=== PATIENT | male | born 1985 | race Caucasian/White ===

== ENCOUNTER 2021-02-21 22:29 | Inpatient (IN) ==
[2021-02-21] MEDS ORDERED: STAT IV Infusion **Titration per Protocol STA (22:49)
[2021-02-21] MEDS ORDERED: dilTIAZem HCl 5 MG/ML 5 ML VIAL IV STA (22:49)
[2021-02-21 23:00] LABS: Hematocrit (blood only) 45.6 % (42-52); Hemoglobin 16.5 g/dL (14.0-18.0); Mean Corpuscular Hemoglobin 30.9 pg (25-34); Mean Corpuscular Hgb Conc 36.2 g/dL (32-36); Mean Corpuscular Volume 85.4 fL (80-100); Mean Platelet Volume 10.8 fL (7.4-10.4); Platelet Count 311 K/uL (130-400); RDW Coefficient of Variation 12.8 % (11.5-14.5); RDW Standard Deviation 39.5 fL (36.4-46.3); Red Blood Count 5.34 M/uL (4.7-6.1); White Blood Count 15.97 K/uL (4.8-10.8)
[2021-02-21] MEDS: SODIUM CHLORIDE 0.9% 1000ML 1,000 ML IV SCH (23:02)
[2021-02-21] MEDS: dilTIAZem HCL 125 MG in DEXTROSE 5% 100 ML IV SCH (23:02)
[2021-02-21 23:23] LABS: Albumin Level 4.2 gm/dl (3.4-5.0); Calcium 8.9 mg/dl (8.5-10.1); Creatinine Clr Calc Pharmacy 101.8 ml/min; Magnesium 2.3 mg/dl (1.8-2.4); Potassium 2.9 mmol/L (3.5-5.1)
[2021-02-21] MEDS ORDERED: POTASSIUM CHLORIDE CRTAB 20 MEQ TABCR PO STA (23:26)
[2021-02-21 23:29] LABS: Basophils # (auto) 0.02 K/uL (0-0.2); Basophils % (auto) 0.1 %; Eosinophils % (auto) 2.5 %; Immature Granulocytes # (auto) 0.04 K/uL (0.00-0.02); Immature Granulocytes % (auto) 0.3 %; Lymphocytes # (auto) 3.27 K/uL (1.2-3.4); Lymphocytes % (auto) 20.5 %; Monocytes # (auto) 1.13 K/uL (0.11-0.59); Monocytes % (auto) 7.1 %; Neutrophils # (auto) 11.11 K/uL (1.4-6.5); Neutrophils % (auto) 69.5 %
--- NOTE | 2021-02-21 23:38 | Emergency Department Note ---
History of Present Illness General Chief complaint: Tachycardia Stated complaint: CHEST TIGHTNESS, TACHYCARDIA, FLUID IN LUNGS Source: patient Mode of arrival: ambulatory Limitations: no limitations History of Present Illness Provider complaint: Racing heart, shortness of breath Onset (ago): hour(s) Location: chest Severity: moderate Current Pain Intensity: 0 Exacerbated By: + movement Associated symptoms: + shortness of breath; no nausea/vomiting Treatments prior to arrival: none This is a 35-year-old male who presents the emergency department with complaints of racing heart and trouble breathing. Patient denies any prior heart history. A nurse brought me an EKG showing a rapid heart rate at 149 and asked me to come immediately to the room. Patient denies any prior history of palpitations or abnormal heart rhythms. Patient states he noted earlier today that he was more winded than usual walking up a hill in his yard. He states this evening he began to feel as though his heart was racing and it was difficult to breathe. Patient denies fevers or chills or recent illness. States only recent medication change was that he started taking an [id number] stomach medication as he thought he had increased acid irritation. Patient states a week ago he stopped drinking coffee as he felt this was contributing to his reflux type symptoms. Patient denies any significant cardiac history in the family. He admits to occasional alcohol use, no recent significant intoxication. Denies any substance abuse. Patient denies any accompanying pain. No recent leg swelling or calf tenderness. No recent travel. Pt seen during a time of high acuity and national emergency pandemic while wearing PPE. Home Medications Medication Instructions Recorded Confirmed Type aspirin [Aspir-Low] 324 mg PO DAILY PRN 02/21/21 02/21/21 History fluticasone propionate [Flonase 1 spray INTRANASAL DAILY PRN 02/21/21 02/21/21 History Allergy Relief] Allergies Allergy/AdvReac Type Severity Reaction Status Date / Time No Known Allergies Allergy Unverified 02/21/21 23:46 Past Med/Surg History Medical History TANYA on CPAP Surgical History H/O mastectomy elective Family History Mother Hypertension Kidney malignancy Father Hypertension Social History Smoking Status: Never smoker Hx Alcohol Use: Yes Hx Substance Use: No Preferred Language: Mozambican Communication Ability: Effective Climbing Guide Required: No Beliefs That Will Affect Care: None Current Living Situation: Significant Other Feels Safe at Home: Yes Safety Concerns: Feels Safe At This Time Assistive Devices: None Review of Systems See HPI for pertinent positives & negatives. and A total of 10 systems reviewed and were otherwise negative Physical Exam Vital Signs Vital Signs - 24 hr 02/21/21 22:32 02/21/21 22:38 02/21/21 22:41 Temperature 36.7 C Temperature Source Oral Pulse Rate 147 H 147 H 147 H Pulse Rate from SpO2 Sensor 148 H 147 H Respiratory Rate 22 23 31 H Respiratory Effort / Characteristics Non-Labored Spontaneous Respiratory Depth Blood Pressure 214/134 H 223/140 H Blood Pressure Mean 160 167 Blood Pressure Position Sitting Pulse Oximetry 97 99 100 Oxygen Delivery Method Room Air Sepsis Recent Fever Within 48 Hours No Sepsis New/Unexplained Change in Mental Status No Sepsis Action Taken by Nursing No Action Required 02/21/21 22:42 02/21/21 23:00 02/21/21 23:30 Temperature 36.5 C Temperature Source Oral Pulse Rate 142 H 135 H Pulse Rate from SpO2 Sensor 142 H 136 H Respiratory Rate 22 25 H 26 H Respiratory Effort / Characteristics Respiratory Depth Normal Blood Pressure 211/135 H 198/126 H Blood Pressure Mean 160 150 Blood Pressure Position Pulse Oximetry 95 98 97 Oxygen Delivery Method Room Air Sepsis Recent Fever Within 48 Hours Sepsis New/Unexplained Change in Mental Status Sepsis Action Taken by Nursing 02/22/21 00:00 02/22/21 00:30 02/22/21 01:00 Temperature Temperature Source Pulse Rate 135 H 135 H 136 H Pulse Rate from SpO2 Sensor 134 H 136 H Respiratory Rate 19 21 18 Respiratory Effort / Characteristics Respiratory Depth Blood Pressure 188/128 H Blood Pressure Mean 148 Blood Pressure Position Pulse Oximetry 97 96 Oxygen Delivery Method Sepsis Recent Fever Within 48 Hours Sepsis New/Unexplained Change in Mental Status Sepsis Action Taken by Nursing 02/22/21 01:02 02/22/21 01:30 02/22/21 01:31 Temperature Temperature Source Pulse Rate 134 H 134 H 132 H Pulse Rate from SpO2 Sensor 135 H 134 H 132 H Respiratory Rate 14 23 26 H Respiratory Effort / Characteristics Respiratory Depth Blood Pressure 169/115 H 174/117 H Blood Pressure Mean 133 136 Blood Pressure Position Pulse Oximetry 97 95 96 Oxygen Delivery Method Sepsis Recent Fever Within 48 Hours Sepsis New/Unexplained Change in Mental Status Sepsis Action Taken by Nursing 02/22/21 01:32 Temperature Temperature Source Pulse Rate 127 H Pulse Rate from SpO2 Sensor 127 H Respiratory Rate 35 H Respiratory Effort / Characteristics Respiratory Depth Blood Pressure Blood Pressure Mean Blood Pressure Position Pulse Oximetry 96 Oxygen Delivery Method Sepsis Recent Fever Within 48 Hours Sepsis New/Unexplained Change in Mental Status Sepsis Action Taken by Nursing GENERAL: alert, uncomfortable appearing, well nourished, no distress, non-toxic, BMI>40 EYE EXAM: normal conjunctiva, PERRL and EOM's grossly intact OROPHARYNX: no exudate, no erythema, lips, buccal mucosa, and tongue normal and mucous membranes are moist NECK: supple, no nuchal rigidity, no adenopathy, non-tender LUNGS: Clear to auscultation. Normal chest wall mechanics, no w/r/r HEART: no murmurs, S1 normal and S2 normal, tachycardic on telemetry around 150 ABDOMEN: abdomen soft, non-tender, normo-active bowel sounds, no masses, no rebound or guarding. BACK: Back is symmetrical on inspection and there is no deformity, no midline tenderness, no CVA tenderness. SKIN: no rashes and no bruising UPPER EXTREMITIES: upper extremities are grossly normal. FROM, nml pulses b/l. LOWER EXTREMITIES: No pitting edema. FROM, nml pulses b/l. NEURO EXAM: Normal sensorium, cranial nerves II-XII grossly intact, normal speech, no gross weakness of arms, no gross weakness of legs. Gross sensation intact. Course Course 0003: HR 138, pt states feeling improved. Denies any recent tick/bug bites. 0015: Discussed with Dr. Lr. 0038: Discussed with Dr. Lr. 0130: Discussed with Dr. Bunch. 0133: HR 128. He denies any current chest discomfort of any kind, or sob. 0135: Discussed with Dr. Kelly. Administered Medications Heparin Sodium/Dextrose (Heparin Sodium/Dextrose) 25,000 units in 500 mls @ 32 mls/hr IV .[id number] [facility]; Protocol Stop: 03/24/21 01:44 Last Titration: 02/22/21 17:40 Dose: 1,600 units/hr, 32 mls/hr Documented by: [id number] Cosigned by: [id number] Titration: 02/22/21 10:08 Dose: 1,300 units/hr, 26 mls/hr Documented by: [id number] Cosigned by: [id number] Admin: 02/22/21 02:14 Dose: 1,000 units/hr, 20 mls/hr Documented by: [id number] Cosigned by: [id number] Famotidine 20 mg/ Syringe 5 mls @ 2.5 mls/min IV BID ROLAND Stop: 03/24/21 08:59 Last Admin: 02/22/21 08:02 Dose: 2.5 mls/min Documented by: [id number] Ceftriaxone Sodium 2,000 mg/ (Dextrose) 70 mls @ 100 mls/hr IV Q24H [facility]; Protocol Stop: 03/04/21 03:59 Last Infusion: 02/22/21 05:36 Dose: 0 mls/hr Documented by: [id number] Admin: 02/22/21 04:21 Dose: 100 mls/hr Documented by: [id number] Doxycycline Hyclate 100 mg/ (Dextrose) 110 mls @ 50 mls/hr IV Q12H [facility] Stop: 03/04/21 05:59 Last Admin: 02/22/21 17:22 Dose: 50 mls/hr Documented by: [id number] Infusion: 02/22/21 07:15 Dose: 0 mls/hr Documented by: [id number] Admin: 02/22/21 05:00 Dose: 50 mls/hr Documented by: [id number] Metoprolol Tartrate (Metoprolol Tartrate 25 Mg Tab) 25 mg PO Q6 R[facility] Stop: 03/24/21 12:59 Last Admin: 02/22/21 17:22 Dose: 25 mg Documented by: [id number] Admin: 02/22/21 13:03 Dose: 25 mg Documented by: [id number] Discontinued Medications Diltiazem HCl (Diltiazem Hcl 5 Mg/Ml 5 Ml Vial) 20 mg IV NOW STA Stop: 02/21/21 22:50 Last Admin: 02/21/21 23:02 Dose: 20 mg Documented by: [id number] Cosigned by: [id number] Heparin Sodium (Porcine) (Heparin Sod (Porcine) 1000 Unit/Ml) 4,500 units IV NOW ONE Stop: 02/22/21 18:01 Last Admin: 02/22/21 18:06 Dose: 4,500 units Documented by: [id number] Cosigned by: [id number] Heparin Sodium/Dextrose (Heparin Iv Adult Wt-Based Low-Dose *No* Bolus Protocol) 1 ea N/A ONE ONE; Protocol Stop: 02/22/21 01:32 Last Admin: 02/22/21 02:27 Dose: Not Given Documented by: [id number] Sodium Chloride (Nss 1000ml) 1,000 mls @ 125 mls/hr IV .Q8H ROLAND Stop: 03/23/21 22:59 Last Infusion: 02/22/21 13:10 Dose: 0 mls/hr Documented by: [id number] Admin: 02/22/21 06:49 Dose: 125 mls/hr Documented by: [id number] Infusion: 02/22/21 06:49 Dose: 125 mls/hr Documented by: [id number] Admin: 02/21/21 23:02 Dose: 125 mls/hr Documented by: [id number] Diltiazem HCl 125 mg/ Dextrose 125 mls @ 15 mls/hr IV .Q8H20M [facility]; Protocol Stop: 03/23/21 22:59 Last Titration: 02/22/21 13:10 Dose: 0 mg/hr, 0 mls/hr Documented by: [id number] Cosigned by: [id number] Admin: 02/22/21 08:02 Dose: 15 mg/hr, 15 mls/hr Documented by: [id number] Cosigned by: [id number] Titration: 02/22/21 08:02 Dose: 0 mg/hr, 0 mls/hr Documented by: [id number] Cosigned by: [id number] Titration: 02/21/21 23:51 Dose: 15 mg/hr, 15 mls/hr Documented by: [id number] Cosigned by: [id number] Titration: 02/21/21 23:25 Dose: 10 mg/hr, 10 mls/hr Documented by: [id number] Cosigned by: [id number] Admin: 02/21/21 23:02 Dose: 5 mg/hr, 5 mls/hr Documented by: [id number] Cosigned by: [id number] Potassium Chloride (K Garrett / Wtr) 10 meq in 100 mls @ 100 mls/hr IV ONE ONE Stop: 02/22/21 02:45 Last Infusion: 02/22/21 03:49 Dose: 0 mls/hr Documented by: [id number] Admin: 02/22/21 02:44 Dose: 100 mls/hr Documented by: [id number] Potassium Chloride (K Garrett / Wtr) 10 meq in 100 mls @ 100 mls/hr IV Q1H [facility]OL[facility] Stop: 02/22/21 05:59 Last Infusion: 02/22/21 06:50 Dose: 0 mls/hr Documented by: [id number] Admin: 02/22/21 05:30 Dose: 100 mls/hr Documented by: [id number] Infusion: 02/22/21 05:21 Dose: 100 mls/hr Documented by: [id number] Admin: 02/22/21 04:21 Dose: 100 mls/hr Documented by: [id number] Potassium Chloride (K Garrett / Wtr) 10 meq in 100 mls @ 100 mls/hr IV Q1H ROL[facility] Stop: 02/22/21 08:29 Last Infusion: 02/22/21 08:56 Dose: 0 mls/hr Documented by: [id number] Admin: 02/22/21 07:43 Dose: 100 mls/hr Documented by: [id number] Infusion: 02/22/21 07:42 Dose: 0 mls/hr Documented by: [id number] Admin: 02/22/21 06:40 Dose: 100 mls/hr Documented by: [id number] Furosemide 20 mg/ Syringe 2 mls @ 4 mls/min IV ONE ONE Stop: 02/22/21 13:01 Last Admin: 02/22/21 13:04 Dose: 4 mls/min Documented by: [id number] Ioversol (Optiray 350 500ml) 106 ml IV ONCE ONE Stop: 02/22/21 00:40 Last Admin: 02/22/21 00:41 Dose: 106 ml Documented by: [id number] Metoprolol Succinate (Metoprolol Succ 25mg Ext Rel Tab) 25 mg PO QAM ROLAND Stop: 03/24/21 08:59 Last Admin: 02/22/21 08:01 Dose: 25 mg Documented by: [id number] Metoprolol Tartrate (Metoprolol Tartrate 1 Mg/Ml Vial) 5 mg IV NOW [facility] Stop: 02/22/21 01:44 Last Admin: 02/22/21 02:17 Dose: 5 mg Documented by: [id number] Metoprolol Tartrate (Metoprolol Tartrate 1 Mg/Ml Vial) 2.5 mg IV NOW STA Stop: 02/22/21 03:13 Last Admin: 02/22/21 04:20 Dose: 2.5 mg Documented by: [id number] Miscellaneous (Stat Iv Infusion Titration Per Protocol) 1 ea N/A NOW STA Stop: 02/21/21 22:50 Last Admin: 02/21/21 23:02 Dose: 1 ea Documented by: [id number] Nitroglycerin (Nitroglycerin 2% Ointment 30gm Tube) 1 inch EXT NOW STA Stop: 02/22/21 00:20 Last Admin: 02/22/21 00:27 Dose: 1 inch Documented by: [id number] Potassium Chloride (Potassium Chloride Crtab 20 Meq Tabcr) 40 meq PO NOW STA Stop: 02/21/21 23:27 Last Admin: 02/21/21 23:33 Dose: 40 meq Documented by: [id number] Potassium Chloride (Potassium Chloride Crtab 20 Meq Tabcr) 20 meq PO NOW STA Stop: 02/22/21 06:15 Last Admin: 02/22/21 07:16 Dose: 20 meq Documented by: [id number] Potassium Chloride (Potassium Chloride Crtab 20 Meq Tabcr) 20 meq PO NOW ONE Stop: 02/22/21 13:01 Last Admin: 02/22/21 13:03 Dose: 20 meq Documented by: [id number] Critical Care Time Critical Care Time: Yes Total Critical Care Time: 57 Critical care of 57 min performed to assess and manage high likelihood of life- threatening dysrhythmia and elevated troponin, involving labs and imaging performed with assessment to evaluate dysrhythmia and elevated troponin diagnosis with frequent reassessment. This time includes bedside time, treatment discussions with patient/family/consultants, documentation time and excludes procedure time. Medical Decision Making Differential Diagnosis Differential diagnosis includes etiologies such as premature contractions, electrolyte abnormality, cardiac dysrhythmia, thyroid dysfunction, pulmonary embolism, infection, gastrointestinal, as well as others were entertained. Medical Records Attestation: I reviewed the patient's medical records. Home Medications Current Medication List: was personally reviewed by me Laboratory Data Attestation: I reviewed the patient's lab results. Result diagrams: 02/22/21 04:13 02/22/21 14:08 Lab Results 02/21/21 02/21/21 02/21/21 Range/Units 22:45 22:45 22:45 WBC 15.97 H (4.8-10.8) K/uL RBC 5.34 (4.7-6.1) M/uL Hgb 16.5 (14.0-18.0) g/dL Hct 45.6 (42-52) % MCV 85.4 (80-100) fL MCH 30.9 (25-34) pg MCHC 36.2 H (32-36) g/dL RDW Std Deviation 39.5 (36.4-46.3) fL RDW Coeff of Kalina 12.8 (11.5-14.5) % Plt Count 311 (130-400) K/uL MPV 10.8 H (7.4-10.4) fL Immature Gran % (Auto) 0.3 % Neut % (Auto) 69.5 % Lymph % (Auto) 20.5 % [place] % (Auto) 7.1 % Eos % (Auto) 2.5 % Baso % (Auto) 0.1 % Neut # (Auto) 11.11 H (1.4-6.5) K/uL Lymph # (Auto) 3.27 (1.2-3.4) K/uL [place] # (Auto) 1.13 H (0.11-0.59) K/uL Eos # (Auto) 0.40 (0-0.5) K/uL Baso # (Auto) 0.02 (0-0.2) K/uL Immature Gran # (Auto) 0.04 H (0.00-0.02) K/uL ESR 26 H (0-15) mm/hr PT INR Sodium 140 (136-145) mmol/L Potassium 2.9 L (3.5-5.1) mmol/L Chloride 105 (98-107) mmol/L Carbon Dioxide 28 (21-32) mmol/L Anion Gap 7.0 (3-11) BUN 13 (7-18) mg/dl Creatinine 1.43 H (0.6-1.4) mg/dl Est Cr Clr Drug Dosing 101.8 ml/min Est GFR ( Amer) 73.0 ml/min Est GFR (Non-Af Amer) 63.0 ml/min BUN/Creatinine Ratio 9.0 L (10-20) Glucose 192 H (70-99) mg/dl Osmolality (280-300) mOsm/kg Calcium 8.9 (8.5-10.1) mg/dl Magnesium 2.3 (1.8-2.4) mg/dl Total Bilirubin 0.6 (0.2-1) mg/dl AST 72 H (15-37) U/L ALT 67 (12-78) U/L Alkaline Phosphatase 104 (45-117) U/L Troponin I 13.300 H* (0-0.045) ng/ml C-Reactive Protein 2.87 H (0-0.29) mg/dl NT-Pro-B Natriuret Pep 5580 H (0-450) pg/ml Total Protein 8.0 (6.4-8.2) gm/dl Albumin 4.2 (3.4-5.0) gm/dl Globulin 3.8 (2.5-4.0) gm/dl Albumin/Globulin Ratio 1.1 (0.9-2) TSH 6.080 H (0.300-4.500) uIu/ml Free T4 1.08 (0.8-1.6) ng/dl Anaplasma Smear See Comment Lyme Disease IgG Ab Lyme Disease IgM Ab COVID-19 Eval Order SARS-CoV-2 (PCR) (Negative) Monoscreen (Negative) 02/21/21 02/21/21 02/21/21 Range/Units 23:04 23:04 23:52 WBC (4.8-10.8) K/uL RBC (4.7-6.1) M/uL Hgb (14.0-18.0) g/dL Hct (42-52) % MCV (80-100) fL MCH (25-34) pg MCHC (32-36) g/dL RDW Std Deviation (36.4-46.3) fL RDW Coeff of Kalina (11.5-14.5) % Plt Count (130-400) K/uL MPV (7.4-10.4) fL Immature Gran % (Auto) % Neut % (Auto) % Lymph % (Auto) % [place] % (Auto) % Eos % (Auto) % Baso % (Auto) % Neut # (Auto) (1.4-6.5) K/uL Lymph # (Auto) (1.2-3.4) K/uL [place] # (Auto) (0.11-0.59) K/uL Eos # (Auto) (0-0.5) K/uL Baso # (Auto) (0-0.2) K/uL Immature Gran # (Auto) (0.00-0.02) K/uL ESR (0-15) mm/hr PT Cancelled 10.1 INR Cancelled 1.0 Sodium (136-145) mmol/L Potassium (3.5-5.1) mmol/L Chloride (98-107) mmol/L Carbon Dioxide (21-32) mmol/L Anion Gap (3-11) BUN (7-18) mg/dl Creatinine (0.6-1.4) mg/dl Est Cr Clr Drug Dosing ml/min Est GFR ( Amer) ml/min Est GFR (Non-Af Amer) ml/min BUN/Creatinine Ratio (10-20) Glucose (70-99) mg/dl Osmolality (280-300) mOsm/kg Calcium (8.5-10.1) mg/dl Magnesium (1.8-2.4) mg/dl Total Bilirubin (0.2-1) mg/dl AST (15-37) U/L ALT (12-78) U/L Alkaline Phosphatase (45-117) U/L Troponin I (0-0.045) ng/ml C-Reactive Protein (0-0.29) mg/dl NT-Pro-B Natriuret Pep (0-450) pg/ml Total Protein (6.4-8.2) gm/dl Albumin (3.4-5.0) gm/dl Globulin (2.5-4.0) gm/dl Albumin/Globulin Ratio (0.9-2) TSH (0.300-4.500) uIu/ml Free T4 (0.8-1.6) ng/dl Anaplasma Smear Lyme Disease IgG Ab Cancelled Lyme Disease IgM Ab Cancelled COVID-19 Eval Order SARS-CoV-2 (PCR) (Negative) Monoscreen (Negative) 02/21/21 02/21/21 02/21/21 Range/Units 23:52 23:52 23:52 WBC (4.8-10.8) K/uL RBC (4.7-6.1) M/uL Hgb (14.0-18.0) g/dL Hct (42-52) % MCV (80-100) fL MCH (25-34) pg MCHC (32-36) g/dL RDW Std Deviation (36.4-46.3) fL RDW Coeff of Kalina (11.5-14.5) % Plt Count (130-400) K/uL MPV (7.4-10.4) fL Immature Gran % (Auto) % Neut % (Auto) % Lymph % (Auto) % [place] % (Auto) % Eos % (Auto) % Baso % (Auto) % Neut # (Auto) (1.4-6.5) K/uL Lymph # (Auto) (1.2-3.4) K/uL [place] # (Auto) (0.11-0.59) K/uL Eos # (Auto) (0-0.5) K/uL Baso # (Auto) (0-0.2) K/uL Immature Gran # (Auto) (0.00-0.02) K/uL ESR (0-15) mm/hr PT INR Sodium (136-145) mmol/L Potassium (3.5-5.1) mmol/L Chloride (98-107) mmol/L Carbon Dioxide (21-32) mmol/L Anion Gap (3-11) BUN (7-18) mg/dl Creatinine (0.6-1.4) mg/dl Est Cr Clr Drug Dosing ml/min Est GFR ( Amer) ml/min Est GFR (Non-Af Amer) ml/min BUN/Creatinine Ratio (10-20) Glucose (70-99) mg/dl Osmolality 290 (280-300) mOsm/kg Calcium (8.5-10.1) mg/dl Magnesium (1.8-2.4) mg/dl Total Bilirubin (0.2-1) mg/dl AST (15-37) U/L ALT (12-78) U/L Alkaline Phosphatase (45-117) U/L Troponin I (0-0.045) ng/ml C-Reactive Protein (0-0.29) mg/dl NT-Pro-B Natriuret Pep (0-450) pg/ml Total Protein (6.4-8.2) gm/dl Albumin (3.4-5.0) gm/dl Globulin (2.5-4.0) gm/dl Albumin/Globulin Ratio (0.9-2) TSH (0.300-4.500) uIu/ml Free T4 (0.8-1.6) ng/dl Anaplasma Smear Lyme Disease IgG Ab Negative Lyme Disease IgM Ab Equivocal A COVID-19 Eval Order SARS-CoV-2 (PCR) (Negative) Monoscreen Negative (Negative) 02/22/21 02/22/21 Range/Units 01:05 01:05 WBC (4.8-10.8) K/uL RBC (4.7-6.1) M/uL Hgb (14.0-18.0) g/dL Hct (42-52) % MCV (80-100) fL MCH (25-34) pg MCHC (32-36) g/dL RDW Std Deviation (36.4-46.3) fL RDW Coeff of Kalina (11.5-14.5) % Plt Count (130-400) K/uL MPV (7.4-10.4) fL Immature Gran % (Auto) % Neut % (Auto) % Lymph % (Auto) % [place] % (Auto) % Eos % (Auto) % Baso % (Auto) % Neut # (Auto) (1.4-6.5) K/uL Lymph # (Auto) (1.2-3.4) K/uL [place] # (Auto) (0.11-0.59) K/uL Eos # (Auto) (0-0.5) K/uL Baso # (Auto) (0-0.2) K/uL Immature Gran # (Auto) (0.00-0.02) K/uL ESR (0-15) mm/hr PT INR Sodium (136-145) mmol/L Potassium (3.5-5.1) mmol/L Chloride (98-107) mmol/L Carbon Dioxide (21-32) mmol/L Anion Gap (3-11) BUN (7-18) mg/dl Creatinine (0.6-1.4) mg/dl Est Cr Clr Drug Dosing ml/min Est GFR ( Amer) ml/min Est GFR (Non-Af Amer) ml/min BUN/Creatinine Ratio (10-20) Glucose (70-99) mg/dl Osmolality (280-300) mOsm/kg Calcium (8.5-10.1) mg/dl Magnesium (1.8-2.4) mg/dl Total Bilirubin (0.2-1) mg/dl AST (15-37) U/L ALT (12-78) U/L Alkaline Phosphatase (45-117) U/L Troponin I (0-0.045) ng/ml C-Reactive Protein (0-0.29) mg/dl NT-Pro-B Natriuret Pep (0-450) pg/ml Total Protein (6.4-8.2) gm/dl Albumin (3.4-5.0) gm/dl Globulin (2.5-4.0) gm/dl Albumin/Globulin Ratio (0.9-2) TSH (0.300-4.500) uIu/ml Free T4 (0.8-1.6) ng/dl Anaplasma Smear Lyme Disease IgG Ab Lyme Disease IgM Ab COVID-19 Eval Order Covid19 at [facility] SARS-CoV-2 (PCR) NEGATIVE (Negative) Monoscreen (Negative) Imaging Data My Impression: X-ray: I interpreted the following studies. Chest: A single view study of the chest was reviewed and was negative for cardiomegaly, focal infiltrate, effusion, pulmonary edema, or wide mediastinum. Radiologist's Impression: Chest X-Ray 02/21/21 22:49 XR chest 1V portable CLINICAL HISTORY: Shortness of breath COMPARISON STUDY: No previous studies for comparison. FINDINGS: The cardiac and mediastinal contours are normal. There is no evidence of focal pulmonary consolidation. There is no evidence of failure. No pleural effusions are visualized.[ IMPRESSION: No active disease in the chest. ACT 112: Negative or not required by law. Electronically signed by: Blaze Jefferson M.D. 02/22/2021 7:48 AM Chest CTA 02/22/21 00:16 CT ANGIOGRAM OF THE CHEST CLINICAL HISTORY: Shortness of breath. Possible acute pulmonary embolism COMPARISON STUDY: 02/21/2021 TECHNIQUE: Following the IV administration of 106 mL of Optiray, CT angiogram of the thorax was performed from the thoracic inlet to the lung bases utilizing the pulmonary embolus protocol. Images are reviewed in the axial, sagittal, and coronal planes. IV contrast was administered without complication. MIP imaging was performed. A dose lowering technique was utilized adhering to the principles of ALARA. CT DOSE: 1001.13 mGy.cm FINDINGS: There is hepatic steatosis. There is a mildly enlarged right paratracheal lymph node. This however demonstrates a normal fatty hilum and is likely reactive. The ascending thoracic aorta measures 36 mm in diameter. There is a small pericardial effusion. There were no pulmonary artery filling defects to indicate acute pulmonary embolism. No pleural effusions are visualized. There is mild interlobular of the septal edema. There is no focal pulmonary consolidation to indicate a pneumonia IMPRESSION: 1. No evidence of acute pulmonary embolism. 2. No evidence of focal pulmonary consolidation 3. Interlobular pulmonary septal edema 4. Small pericardial effusion 5. Hepatic steatosis ACT 112: Negative or not required by law. Electronically signed by: Blaze Jefferson M.D. 02/22/2021 7:41 AM CTA chest: No acute pulmonary embolus. Small pericardial effusion. Mild interstitial edema in the lung bases. Marked hepatic steatosis. Radiologist: Samuel Perez MD ECG Data Attestation: I personally reviewed and interpreted this ECG as follows: Indication: + palpitations and + tachycardia Rate (beats per minute): 149 Rhythm: + atrial flutter ECG Intervals/blocks: + Normal QRS and + Normal QT ECG [place]: + Normal ECG ST segments: + Nonspecific ST abnormalities (1, aVL, 2, 3, aVF) Comparison ECG Date: no prior available Additional Comments: Second EKG at 2357 shows a rate of 138, normal QRS and normal QTC, normal axis, low rate is still fast this time it appears more consistent with a sinus tachycardia, some nonspecific ST/T wave changes are noted in 1, aVL, lead III, and aVF Blood Pressure Blood Pressure Findings: Elevated blood pressure Blood Pressure Disposition: further management by hospitalist TEDDY Le This is a 35-year-old male presents emergency department due to concern for palpitations/pounding sensation in his chest as well as increased dyspnea with exertion all of which are new. Patient states he noticed symptoms today. Patient markedly tachycardic on initial presentation and was holding heart rate at 150, which raised my suspicion for new onset atrial flutter with 2:1 conduction. Patient started on Cardizem bolus and drip. Drip gradually incre ased and patient with improvement in blood pressure and slower improvement in heart rate into the 130s. Repeat EKG then appeared more consistent with a possible underlying sinus tachycardia. Other than obesity patient with no risk factors for ACS, no significant family history of cardiac problems. Patient stated he was feeling improved as the heart rate improved. Given mixed picture and concern, I discussed the case with cardiology. While discussing the case, patient's troponin resulted at 13 which seemed much higher than expected given abrupt onset of symptoms today per his report. Cardiology was able to review EKGs and did call back and we discussed further management and treatment. CT angiography of the patient's chest had already been ordered and was pending as I had higher concern for possible PE as the underlying explanation of his symptoms and presentation. CT read by overnight radiologist as negative. After this case discussed with on-call interventional cardiology as a precaution given significantly elevated troponin. He was able to review EKGs also. I reevaluated the patient and he said symptoms had since improved no sense of chest tightness or pressure, heart rate down in the 120s and blood pressure markedly improved also. He felt patient did not need emergent cardiac catheterization at this time. Case discussed with hospitalist for additional evaluation and management. During this interval I had previously ordered a Lyme test, the IgG was negative however IgM was equivocal. This was discussed with hospitalist also in the added additional tests including anaplasmosis. After discussion with cardiology I had started a heparin drip in addition. Patient kept up-to-date on results and plan. Was feeling improved while in the emergency room however still tachycardic and hypertensive. I did discuss possible concern for evolving congestive heart failure given obvious stress on the heart, hypertensive emergency, I do not suspect primary ACS or other vascular etiology. An order was placed for continuous cardiac monitoring. The monitor shows a rate of _139_ with _sinus tachycardia rhythm. Impression & Plan Dysrhythmia, Palpitations, Tachycardia, Elevated troponin, Hypokalemia, BANEGAS (dyspnea on exertion), Hypertension Discharge Plan Visit Data Chief Complaint: Tachycardia Stated Complaint: CHEST TIGHTNESS, TACHYCARDIA, FLUID IN LUNGS ED Provider: Ana Simmons Discharge Problem: Dysrhythmia, Palpitations, Tachycardia, Elevated troponin, Hypokalemia, BANEGAS (dyspnea on exertion), Hypertension Patient Disposition: Admitted As Inpatient Discharge Instructions Interventions: ED Discharge Assessment Last Done: 02/22/21 03:15 Discharge Problem: Dysrhythmia Qualifiers: Arrhythmia type: unspecified cardiac arrhythmia Qualified Code(s): I49.9 - Cardiac arrhythmia, unspecified Hypertension Qualifiers: Hypertension type: unspecified Qualified Code(s): I10 - Essential (primary) hypertension
[2021-02-21 23:41] LABS: Albumin Globulin Ratio 1.1 (0.9-2); Bilirubin,Total 0.6 mg/dl (0.2-1); Globulin 3.8 gm/dl (2.5-4.0); Thyroid Stimulating Hormone 6.08 uIu/ml (0.300-4.500); Troponin I 13.3 ng/ml (0-0.045)
[2021-02-21 23:55] LABS: T4 Free Thyroxine 1.08 ng/dl (0.8-1.6)
[2021-02-22] MEDS ORDERED: NITROGLYCERIN 2% OINTMENT 30GM TUBE EXT STA (00:19)
[2021-02-22 00:23] LABS: Prothrombin Time 10.1 Seconds (9.0-12.0)
[2021-02-22] MEDS ORDERED: OPTIRAY 350 500ml IV ONE (00:39)
[2021-02-22 01:08] LABS: Lyme Ab IgG w/WB Rflx Negative (Negative)
[2021-02-22 01:10] LABS: Lyme Ab IgM w/WB Rflx Equivocal (Negative)
[2021-02-22] MEDS ORDERED: Heparin IV Adult Wt-Based Low-Dose *NO* Bolus Protocol ONE (01:31)
--- NOTE | 2021-02-22 01:39 | History & Physical Report ---
Date of Service February 22, 2021 Assessment & Plan (1) Tachycardia: 35 yo M with hx TANYA on CPAP admitted from ER for new and persistent tachycardia, elevated troponin, concern for myocarditis/pericarditis. 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 - patient denies any recollection of rashes/tick bites but was recently mowing lawn a few days ago and lives in [place] (endemic tick region) - TTE in AM - trop elevated to 13 initially, trending - EKG showing aflutter as above - spirochete workup: anaplasmosis, ehrlichia pending - inflammatory panel elevated as above, RF pending - viral workup: monospot pending - WBC elevated with left shift & elevated monocytes TANYA - hx of, uses CPAP nightly at home - cont nightly CPAP - likely has an element of pulm htn/diastolic disease given elevated diastolic BP, TTE for evaluation as above Hypokalemia - repleted 40 mg PO, 10 mg IV - 30 mg IV on the floor - repeat BMP 4 am - goal K >4, Mag >2 Elevated Troponin - discussion with Dr. Bunch in ER -- less likely CAD, no indication for urgent catheterization given resolution of chest tightness/pain - trend troponins - heparin drip wo bolus Elevated BSG - A1c and lipid panel ordered in AM for cardiac risk stratification DVT ppx: on heparin drip FEN/Gi: heart healthy diet Code Status: Full Code Dispo: PCU (2) BANEGAS (dyspnea on exertion): (3) Hypokalemia: (4) Elevated troponin: (5) TANYA on CPAP: History of Present Illness 35-year-old male with past medical history of TANYA on CPAP presenting to the emergency department for acute onset palpitations, chest tightness, dyspnea on exertion. He states that 2 days ago he was mowing his lawn and felt more tired than usual afterwards but otherwise felt well. He states that today he was walking up a hill in his backyard and could feel his heart racing faster and harder than it normally does. He also stated that he was more easily fatigued while going up this he will. His heart rate and symptoms subsided within a few minutes after stopping however later the same day he noticed his heart going faster and generally feeling unwell. He stated that he initially attributed this to his recent cessation of coffee and associated mild reflux symptoms. He eventually decided that he needed to be evaluated in the emergency department. Since being treated with Cardizem and having his heart rate lowered he says that the chest tightness that was there prior no longer is present. He continues to deny any chest tightness, pressure, pain, radiation. He does attest to feeling palpitations however much improved from before. He states that he has been told he had "borderline" high blood pressure before but was never prescribed medication for it. He states that he does not have a strong family history of heart attack, stroke, coronary artery disease. His parents both had hypertension but otherwise he is not aware of any cardiac disease or diabetes in his family. He takes Flonase as needed for nasal congestion and occasionally will take an aspirin if he has a headache. He does not otherwise take any medications or supplements. Primary Care Provider: NO PCP Allergies Allergy/AdvReac Type Severity Reaction Status Date / Time No Known Allergies Allergy Unverified 02/21/21 23:46 Home Medications Medication Instructions Recorded Confirmed Type aspirin [Aspir-Low] 324 mg PO DAILY PRN 02/21/21 02/21/21 History fluticasone propionate [Flonase 1 spray INTRANASAL DAILY PRN 02/21/21 02/21/21 History Allergy Relief] Past Med/Surg History Medical History TANYA on CPAP Surgical History H/O mastectomy elective Family History Mother Hypertension Kidney malignancy Father Hypertension Social History Smoking Status: Never smoker Hx Alcohol Use: Yes Hx Substance Use: No Preferred Language: Guamanian Communication Ability: Effective Loom Checker Required: No Beliefs That Will Affect Care: None Current Living Situation: Significant Other Feels Safe at Home: Yes Safety Concerns: Feels Safe At This Time Assistive Devices: Glasses Review of Systems Constitutional: no fever, no chills, no sweats and no fatigue Eyes: no blind spots and no discharge Ear, Nose, Mouth, Throat: no hearing loss and no nasal congestion Respiratory: no cough and no dyspnea Cardiovascular: + dyspnea on exertion and + palpitations; no chest pain, no radiating jaw, neck or arm pain, no orthopnea, no lightheadedness and no edema Gastrointestinal: no abdominal pain, no nausea, no vomiting, no constipation, no diarrhea/loose stools and no blood in stools Musculoskeletal: no joint pain and no myalgia Neurologic: no tingling, no numbness and no headache(s) Endocrine: no fatigue Physical Exam Physical Exam: Constitutional: obese, in no apparent distress, laying comfortably in bed. Eyes: EOMI, pupils equal and reactive bilaterally, no scleral icterus Neck: thick Cardiac: tachycardic at 130 on monitor, RR, no murmurs, gallops or rubs. Normal S1, S2 Pulm: CTA BL, no wheezes, rhonchi, crackles or rubs, moving air well throughout both lungs Abd: soft, nontender, nondistended, normal bowel sounds, no rebound or guarding, healed surgical scar across superior abdomen Extremities: 1+ peripheral pulses (difficult to palpate), no edema Neuro: no focal deficits, moving all 4 limbs, A&Ox3 Results & Data Results & Data ([facility]) Vital Signs (Past 12 Hours) Vital Signs Temp Pulse Resp BP Pulse Ox 02/22/21 01:02 134 H 14 169/115 H 97 02/22/21 01:00 136 H 18 96 02/22/21 00:30 135 H 21 02/22/21 00:00 135 H 19 188/128 H 97 02/21/21 23:30 135 H 26 H 198/126 H 97 02/21/21 23:00 142 H 25 H 211/135 H 98 02/21/21 22:42 36.5 C 22 95 02/21/21 22:41 147 H 31 H 100 02/21/21 22:38 147 H 23 223/140 H 99 02/21/21 22:32 36.7 C 147 H 22 214/134 H 97 Laboratory Results WBC 15.97 K/uL (4.8-10.8) H 02/21/21 22:45 RBC 5.34 M/uL (4.7-6.1) 02/21/21 22:45 Hgb 16.5 g/dL (14.0-18.0) 02/21/21 22:45 Hct 45.6 % (42-52) 02/21/21 22:45 MCV 85.4 fL (80-100) 02/21/21 22:45 MCH 30.9 pg (25-34) 02/21/21 22:45 MCHC 36.2 g/dL (32-36) H 02/21/21 22:45 RDW Std Deviation 39.5 fL (36.4-46.3) 02/21/21 22:45 RDW Coeff of Kalina 12.8 % (11.5-14.5) 02/21/21 22:45 Plt Count 311 K/uL (130-400) 02/21/21 22:45 MPV 10.8 fL (7.4-10.4) H 02/21/21 22:45 Immature Gran % (Auto) 0.3 % 02/21/21 22:45 Neut % (Auto) 69.5 % 02/21/21 22:45 Lymph % (Auto) 20.5 % 02/21/21 22:45 Bollinger % (Auto) 7.1 % 02/21/21 22:45 Eos % (Auto) 2.5 % 02/21/21 22:45 Baso % (Auto) 0.1 % 02/21/21 22:45 Neut # (Auto) 11.11 K/uL (1.4-6.5) H 02/21/21 22:45 Lymph # (Auto) 3.27 K/uL (1.2-3.4) 02/21/21 22:45 Bollinger # (Auto) 1.13 K/uL (0.11-0.59) H 02/21/21 22:45 Eos # (Auto) 0.40 K/uL (0-0.5) 02/21/21 22:45 Baso # (Auto) 0.02 K/uL (0-0.2) 02/21/21 22:45 Immature Gran # (Auto) 0.04 K/uL (0.00-0.02) H 02/21/21 22:45 ESR 26 mm/hr (0-15) H 02/21/21 22:45 PT 10.1 Seconds (9.0-12.0) 02/21/21 23:52 INR 1.0 (0.9-1.1) 02/21/21 23:52 Sodium 140 mmol/L (136-145) 02/21/21 22:45 Potassium 2.9 mmol/L (3.5-5.1) L 02/21/21 22:45 Chloride 105 mmol/L (98-107) 02/21/21 22:45 Carbon Dioxide 28 mmol/L (21-32) 02/21/21 22:45 Anion Gap 7.0 (3-11) 02/21/21 22:45 BUN 13 mg/dl (7-18) 02/21/21 22:45 Creatinine 1.43 mg/dl (0.6-1.4) H 02/21/21 22:45 Est Cr Clr Drug Dosing 101.8 ml/min 02/21/21 22:45 Est GFR ( Amer) 73.0 ml/min 02/21/21 22:45 Est GFR (Non-Af Amer) 63.0 ml/min 02/21/21 22:45 BUN/Creatinine Ratio 9.0 (10-20) L 02/21/21 22:45 Glucose 192 mg/dl (70-99) H 02/21/21 22:45 Calcium 8.9 mg/dl (8.5-10.1) 02/21/21 22:45 Magnesium 2.3 mg/dl (1.8-2.4) 02/21/21 22:45 Total Bilirubin 0.6 mg/dl (0.2-1) 02/21/21 22:45 AST 72 U/L (15-37) H 02/21/21 22:45 ALT 67 U/L (12-78) 02/21/21 22:45 Alkaline Phosphatase 104 U/L (45-117) 02/21/21 22:45 Troponin I 13.300 ng/ml (0-0.045) H* 02/21/21 22:45 C-Reactive Protein 2.87 mg/dl (0-0.29) H 02/21/21 22:45 NT-Pro-B Natriuret Pep 5580 pg/ml (0-450) H 02/21/21 22:45 Total Protein 8.0 gm/dl (6.4-8.2) 02/21/21 22:45 Albumin 4.2 gm/dl (3.4-5.0) 02/21/21 22:45 Globulin 3.8 gm/dl (2.5-4.0) 02/21/21 22:45 Albumin/Globulin Ratio 1.1 (0.9-2) 02/21/21 22:45 TSH 6.080 uIu/ml (0.300-4.500) H 02/21/21 22:45 Free T4 1.08 ng/dl (0.8-1.6) 02/21/21 22:45 Lyme Disease IgG Ab Negative (Negative) 02/21/21 23:52 Lyme Disease IgM Ab Equivocal (Negative) A 02/21/21 23:52 COVID-19 Eval Order Covid19 at [facility] 02/22/21 01:05 SARS-CoV-2 (PCR) NEGATIVE (Negative) 02/22/21 01:05 Supervising Physician Co-Signing Physician Notes Attending addendum: I have physically seen this patient, have supervised the medical residents activities, and agree with the H&P unless as otherwise noted. Assessment and Plan: Myopericarditis/tachycardia- The patient will be admitted to telemetry for serial cardiac enzymes, serial EKG's, cardiac rhythm monitoring and a 2-D echocardiogram with Dopplers. Initial A-flutter with 2-1 conduction converted to normal sinus rhythm after initiation of diltiazem drip and rate decreased to the 130s. Addition of metoprolol 5 mg IV with improved response and heart rate control into the 110s. We will give metoprolol succinate 25 mg p.o. now and every morning, work on tapering the Cardizem drip, and have as needed Lopressor IV. Troponin initially elevated at 13.30. Order appropriate laboratory work-up: Lyme test equivocal. Check anaplasmosis, ehrlichiosis, sed rate, IKER, rheumatoid factor, Monospot, EBV, CMV, coxsackie B virus Once confirmed myopericarditis, start aspirin 1025 mg p.o. twice daily and colchicine 0.6 mg p.o. twice daily Empirically treat with ceftriaxone 2 g IV daily and doxycycline 100 mg IV twice daily Remaining orders and notations as noted Hypokalemia- Replace both orally and IV to goal of 4.0 consult cardiology Resident Activity Tracking Resident Involvement: Resident Care Provided Care Provided: Adult [facility]
[2021-02-22] MEDS ORDERED: METOPROLOL TARTRATE 1 MG/ML VIAL IV STA ×2 (01:43→03:12)
[2021-02-22] MEDS ORDERED: POTASSIUM CHLORIDE / WTR 10 MEQ/100 ML PLCT IV ONE (01:46)
[2021-02-22] MEDS: HEPARIN SODIUM/DEXTROSE 25,000 UNITS/500 ML BAG IV SCH (02:14)
[2021-02-22 02:16] LABS: C Reactive Protein 2.87 mg/dl (0-0.29)
[2021-02-22] MEDS ORDERED: ACETAMINOPHEN 325 MG TAB PO PRN (03:46)
[2021-02-22] MEDS ORDERED: MAGNESIUM HYDROXIDE SUSP 30 ML UDC PO PRN (03:46)
[2021-02-22] MEDS ORDERED: ONDANSETRON INJ 2 MG/ML 2 ML VIAL IV PRN (03:46)
[2021-02-22] MEDS ORDERED: POLYETHYLENE (MIRALAX) 17 GM PACK PO PRN (03:46)
[2021-02-22] MEDS ORDERED: ALUMINUM/MAGNESIUM SUSP 30 ML UDC PO PRN (03:46)
[2021-02-22] MEDS: POTASSIUM CHLORIDE / WTR 10 MEQ/100 ML PLCT IV SCH ×4 (04:21→07:43)
[2021-02-22] MEDS: cefTRIAXone SODIUM 2,000 MG in DEXTROSE 5% 50 ML IV SCH (04:21)
[2021-02-22 04:35] LABS: Basophils # (auto) 0.02 K/uL (0-0.2); Basophils % (auto) 0.1 %; Eosinophils # (auto) 0.02 K/uL (0-0.5); Eosinophils % (auto) 0.1 %; Hemoglobin 16.9 g/dL (14.0-18.0); Immature Granulocytes # (auto) 0.04 K/uL (0.00-0.02); Immature Granulocytes % (auto) 0.2 %; Lymphocytes # (auto) 2.23 K/uL (1.2-3.4); Lymphocytes % (auto) 12.4 %; Mean Corpuscular Hemoglobin 31.4 pg (25-34); Mean Corpuscular Volume 87.2 fL (80-100); Mean Platelet Volume 11.3 fL (7.4-10.4); Monocytes # (auto) 0.71 K/uL (0.11-0.59); Neutrophils # (auto) 14.94 K/uL (1.4-6.5); Neutrophils % (auto) 83.2 %; Platelet Count 372 K/uL (130-400); RDW Coefficient of Variation 12.9 % (11.5-14.5); RDW Standard Deviation 41.2 fL (36.4-46.3); Red Blood Count 5.39 M/uL (4.7-6.1); White Blood Count 17.96 K/uL (4.8-10.8)
[2021-02-22] MEDS: DOXYCYCLINE HYCLATE 100 MG in DEXTROSE 5% 100 ML IV SCH ×2 (05:00→17:22)
[2021-02-22 05:02] LABS: Albumin Level 4.2 gm/dl (3.4-5.0); BUN Creatinine Ratio 10.4 (10-20); Bilirubin,Total 0.8 mg/dl (0.2-1); Creatinine Clr Calc Pharmacy 123.7 ml/min; Est GFR (African American) 93.1 ml/min; Est GFR (Non-African American) 80.3 ml/min; Globulin 4.1 gm/dl (2.5-4.0); Magnesium 2.4 mg/dl (1.8-2.4); Potassium 3.4 mmol/L (3.5-5.1); Total Protein 8.3 gm/dl (6.4-8.2); Troponin I 8.2 ng/ml (0-0.045)
[2021-02-22] MEDS ORDERED: POTASSIUM CHLORIDE CRTAB 20 MEQ TABCR PO STA (06:14)
[2021-02-22] MEDS: SODIUM CHLORIDE 0.9% 1000ML 1,000 ML IV SCH (06:49)
--- NOTE | 2021-02-22 07:05 | Hospitalist Progress Note ---
Date of Service February 22, 2021 Assessment & Plan (1) Tachycardia: 35 yo M with TANYA on CPAP who presents w/ new dyspnea on exertion and persistent tachycardia, found to have elevated troponin to 13 w/ concern for myocarditis. myocarditis of unknown etiology - most likely viral. elevated ESR, CRP. considered lyme as well as post J&J vaccine reaction - significantly elevated trop - elevated WBC 18 supports infective etiology - echo: EF 30-35. Moderate reduction in LV systolic function. Grade 1 diastolic dysfunction. RWMA: moderate hypokinesis involving inf and basal lateral macias. Significant MR and TR. Trace pericardial effusion. - cardiology consulted. cardiac cath on 02/23 because of reduced LV dysfunction in obese patient of this age and because of the localized areas of hypokineses on echo - Equivocal Lyme IgM. Bands pending. Anaplasma smear neg. Monospot neg. EBV serologies pending. - continue doxycycline and ceftriaxone Acute CHF exacerbation HFrEF, new onset this admission - echo as above - likely secondary to acute myocarditis - CTA: neg for PE or focal consolidation. + interlobular pulmonary septal edema and + small pericardial effusion. - diurese if clinically indicated tachycardia - per cardiology review, rhythm has been in sinus tach, no a flutter - official ecg reads pending. per ED prelim review, sinus tach w/ nonspecific ST/T changes in inferior and septal leads - transitioned off dilt drip - metoprolol 25 mg PO q6h scheduled - rates in 110s-120s, improving - given hx mastectomy and acute onset of tachycardia + hypertension, AM cortisol and urine osm for evaluation of underlying adrenal pathology. AM cortisol pending hypokalemia - 3.1, repletion w/ 40 meq PO K ordered - goal K >4, Mag >2 Elevated Troponin - admitting team had discussion with Dr. Bunch in ER -- less likely CAD, no indication for urgent catheterization given resolution of chest tightness/pain - trend troponins: 13.3->8.2->8.36 - heparin drip wo bolus Elevated BSG - A1c and lipid panel ordered in AM for cardiac risk stratification. A1C pending. LDL 121. DVT ppx: on heparin drip FEN/Gi: heart healthy diet. IVF discontinued. NPO after midnight. Caution w/ IVF because of low EF. Code Status: Full Code Dispo: PCU (2) BANEGAS (dyspnea on exertion): (3) Hypokalemia: (4) Elevated troponin: (5) TANYA on CPAP: (6) CHF exacerbation: Admission and Anticipated Discharge Date Admission Date: February 22, 2021 Supervising Physician Co-Signing Physician Notes I personally examined the patient and verified all guerrero points of history and exam, discussed case, and agree with decision making with Dr Romo. feeling ok overall. comfortable with the plan. vitals noted nad heent nc at mmm breathing unlabored no accessory muscles good effort skin no rashes no pallor or icterus Myocarditishis clinical syndrome seems most consistent with myocarditis. While I am most familiar with Lyme carditis causing conduction disease, however literature review does show that a smaller percentage of people can have more of a pericarditis/myocarditis picture. Given his equivocal Lyme IgM, empiric treatment makes sense until the clinical picture has declared itself more clearly. Given a degree of risk for actually having coronary disease despite his young age, and the fact that his echocardiogram shows a degree of focality to the wall motion abnormalities, also agree with cardiac cath tomorrow. Continue current care otherwiseto clarify after discussion with cardiology, he was never in atrial flutter, it appears all to have been sinus tach. Subjective Patient has some chest discomfort is generalized in location and mild. No SOB at rest, but if he were to walk, he thinks he would feel BANEGAS. No other symptom complaints and no current palpitations. Additional hx: he lives in an area w/ ticks, but denies noticing any tick bites. He received the Femi&Femi covid vaccine 1 month ago. Review of Systems Review of Systems: Constitutional: Denies fever, chills Cardiovascular: See HPI. Had intermittent palpitations at home 1-2x. Respiratory: Denies shortness of breath at rest Gastrointestinal: Denies abdominal pain, nausea, vomiting, constipation, diarrhea Genitourinary: Denies urinary symptoms including dysuria Musculoskeletal: Denies weakness, muscle aches/pain, joint aches/pain Neurological: Denies headache, numbness, tingling, focal weakness Physical Exam Physical Exam: General: Grossly A&O. NAD. Cooperative. HEENT: Atraumatic, normocephalic. EOMI Pulm: CTAB. -wheezes, -rales, -rhonchi. No respiratory distress. Cardiac: Tachycardic rate, regular rhythm, -mrg. Radial pulses intact and symmetrical. No LE edema. Abdominal: Nontender, nondistended, soft. Results & Data Results & Data ([facility]) Vital Signs (Past 12 Hours) Vital Signs Temp Pulse Pulse Resp BP BP Pulse Ox 02/22/21 05:35 151/106 H 02/22/21 04:20 123 H 02/22/21 03:49 36.6 C 126 H 20 167/125 H 96 02/22/21 03:15 119 H 20 154/111 H 95 02/22/21 02:50 119 H 24 154/111 H 95 02/22/21 02:30 110 H 39 H 96 02/22/21 02:06 130 H 25 H 166/116 H 96 02/22/21 02:04 133 H 23 02/22/21 01:32 127 H 35 H 96 02/22/21 01:31 132 H 26 H 174/117 H 96 02/22/21 01:30 134 H 23 95 02/22/21 01:02 134 H 14 169/115 H 97 02/22/21 01:00 136 H 18 96 02/22/21 00:30 135 H 21 02/22/21 00:00 135 H 19 188/128 H 97 02/21/21 23:30 135 H 26 H 198/126 H 97 02/21/21 23:00 142 H 25 H 211/135 H 98 02/21/21 22:42 36.5 C 22 95 02/21/21 22:41 147 H 31 H 100 02/21/21 22:38 147 H 23 223/140 H 99 02/21/21 22:32 36.7 C 147 H 22 214/134 H 97 Resident Activity Tracking Resident Involvement: Resident Care Provided Care Provided: Adult Hospital Medicine
--- NOTE | 2021-02-22 07:42 | CT Scan Report ---
CT ANGIOGRAM OF THE CHEST CLINICAL HISTORY: Shortness of breath. Possible acute pulmonary embolism COMPARISON STUDY: 02/21/2021 TECHNIQUE: Following the IV administration of 106 mL of Optiray, CT angiogram of the thorax was perfo rmed from the thoracic inlet to the lung bases utilizing the pulmonary embolus protocol. Images are r eviewed in the axial, sagittal, and coronal planes. IV contrast was administered without complication . MIP imaging was performed. A dose lowering technique was utilized adhering to the principles of [place] CONNIE. CT DOSE: 1001.13 mGy.cm FINDINGS: There is hepatic steatosis. There is a mildly enlarged right paratracheal lymph node. This however demonstrates a normal fatty hi lum and is likely reactive. The ascending thoracic aorta measures 36 mm in diameter. There is a small pericardial effusion. There were no pulmonary artery filling defects to indicate acute pulmonary embolism. No pleural effusions are visualized. There is mild interlobular of the septal edema. There is no focal pulmonary consolidation to indicate a pneumonia IMPRESSION: 1. No evidence of acute pulmonary embolism. 2. No evidence of focal pulmonary consolidation 3. Interlobular pulmonary septal edema 4. Small pericardial effusion 5. Hepatic steatosis ACT 112: Negative or not required by law. Electronically signed by: Blaze Jefferson M.D. 02/22/2021 7:41 AM
--- NOTE | 2021-02-22 07:50 | XRay Report ---
XR chest 1V portable CLINICAL HISTORY: Shortness of breath COMPARISON STUDY: No previous studies for comparison. FINDINGS: The cardiac and mediastinal contours are normal. There is no evidence of focal pulmonary co nsolidation. There is no evidence of failure. No pleural effusions are visualized.[ IMPRESSION: No active disease in the chest. ACT 112: Negative or not required by law. Electronically signed by: Blaze Jefferson M.D. 02/22/2021 7:48 AM
[2021-02-22] MEDS: FAMOTIDINE 20 MG in SYRINGE 3 ML IV SCH ×2 (08:02→19:45)
[2021-02-22] MEDS: dilTIAZem HCL 125 MG in DEXTROSE 5% 100 ML IV SCH (08:02)
[2021-02-22 08:48] LABS: Partial Thromboplastin Time 27.6 Seconds (21.0-31.0)
[2021-02-22] MEDS ORDERED: METOPROLOL SUCC 25MG EXT REL TAB PO SCH (09:00)
--- NOTE | 2021-02-22 10:19 | XCELERA ---
[id number]
--- NOTE | 2021-02-22 12:17 | Cardiology Consultation ---
Date of Consultation February 22, 2021 Assessment & Plan (1) Elevated troponin: Unclear etiology. He presented with a markedly elevated troponin. His symptoms are not entirely consistent with an acute coronary syndrome. He does seem to have evidence of an infectious process based on his leukocytosis and elevated inflammatory markers. This is suggestive of a myocarditis. Possibly Lyme carditis. The competing diagnosis would be an acute coronary syndrome. Currently will keep him on heparin infusion. We will intensify his beta- blockade. We will control his blood pressure. Will plan on coronary angiography tomorrow. (2) Tachycardia: Initial rhythm was felt to represent atrial flutter, but I think the actual rhythm was sinus tachycardia. I do not think there is a role for continued diltiazem infusion other than for blood pressure control. I will stop this and intensify his beta-blockade. We can also administer diuretic and Rishi inhibition if necessary. He has nitroglycerin paste applied. It is possible that he has an element of heart failure and volume overload. I do not think this represents a primary arrhythmia. History of Present Illness Reason for Consultation: Tachycardia, elevated troponin Requesting Physician: Jessica Attending Physician: Otis Wright DO History of Present Illness The patient is a 35-year-old gentleman without a known history of cardiac disease who presented to the emergency room with symptoms of palpitations and chest pressure. Patient states that approximately 2 days prior to presentation he was more fatigued doing routine activity. 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 He states that he felt slightly more tired than he was a custom 2 days ago. Yesterday with some activity he noticed some breathlessness and tachycardia. This resolved with rest. However, later in the evening he had similar experience with notable palpitations and tachycardia that did not resolve. This was associated with a sense of chest pressure and achiness. He did not have associated dizziness or lightheadedness. He did not report other symptoms such as fevers or chills. He did not report diffuse myalgias. He has not had similar symptoms in the past. In the emergency room he underwent a CT scan of the chest which did not reveal any evidence of pulmonary embolus. EKG was not suggestive of an acute coronary syndrome. He was placed on diltiazem and his symptoms of chest discomfort appear to have resolved. He still has a sense of palpitation. Allergies Allergy/AdvReac Type Severity Reaction Status Date / Time No Known Allergies Allergy Unverified 02/21/21 23:46 Home Medications Medication Instructions Recorded Confirmed Type aspirin 324 mg PO DAILY PRN 02/21/21 02/21/21 History fluticasone propionate [Flonase 1 spray INTRANASAL DAILY PRN 02/21/21 02/21/21 History Allergy Relief] doxycycline hyclate 100 mg PO BID 19 Days #38 cap 02/24/21 Rx lisinopril 5 mg PO DAILY #30 tab 02/24/21 Rx metoprolol succinate [Toprol XL] 100 mg PO DAILY #30 tab 02/24/21 Rx Patient History Medical History TANYA on CPAP Surgical History H/O mastectomy elective Family History Mother Hypertension Kidney malignancy Father Hypertension Social History Smoking Status: Never smoker Hx Alcohol Use: Yes Hx Substance Use: No Preferred Language: Czech Communication Ability: Effective Sealer Aircraft Required: No Beliefs That Will Affect Care: None Current Living Situation: Significant Other Feels Safe at Home: Yes Assistive Devices: CPAP Review of Systems Review of Systems: All systems reviewed & are unremarkable except as noted in HPI & below Physical Exam Physical Exam: The patient is alert and oriented. Mood and affect appeared normal. He answered all questions appropriately. HEENT: Pupils are equal and reactive to light and accommodation. Extraocular movements are intact. The sclerae are anicteric. Neuro: Cranial nerves intact Neck: Patient's neck is supple. He has palpable carotid pulses bilaterally without bruits on auscultation. There is no evidence of jugular venous distention. The thyroid is not enlarged. Lungs: Clear to auscultation bilaterally. He has good air movement without use of accessory muscles. No rales wheezes or rhonchi. Cardiac: Heart demonstrates a regular rhythm with tachycardia. Normal S1 and S2. No murmurs on examination. Pulses: The patient has palpable radial pulses bilaterally that are equal in intensity Extremities: There was no evidence of hypoperfusion. There is no cyanosis or clubbing. There is no edema. Skin: I did not appreciate any rashes on examination today. Results & Data ([facility]) Vital Signs (Past 12 Hours) Vital Signs Temp Pulse Pulse Resp BP BP Pulse Ox 02/22/21 12:07 36.9 C 125 H 20 150/103 H 96 02/22/21 07:43 36.7 C 118 H 20 155/97 H 96 02/22/21 05:35 151/106 H 02/22/21 04:20 123 H 02/22/21 03:49 36.6 C 126 H 20 167/125 H 96 02/22/21 03:15 119 H 20 154/111 H 95 02/22/21 02:50 119 H 24 154/111 H 02/22/21 02:30 110 H 39 H 96 02/22/21 02:06 130 H 25 H 166/116 H 96 02/22/21 02:04 133 H 23 02/22/21 01:32 127 H 35 H 96 02/22/21 01:31 132 H 26 H 174/117 H 96 02/22/21 01:30 134 H 23 95 02/22/21 01:02 134 H 14 169/115 H 97 02/22/21 01:00 136 H 18 96 02/22/21 00:30 135 H 21 Laboratory Results Abnormal Lab Results 02/21/21 02/21/21 02/21/21 22:45 22:45 22:45 WBC 15.97 H RBC 5.34 Hgb 16.5 Hct 45.6 MCV 85.4 MCH 30.9 MCHC 36.2 H RDW Std Deviation 39.5 RDW Coeff of Kalina 12.8 Plt Count 311 MPV 10.8 H Immature Gran % (Auto) 0.3 Neut % (Auto) 69.5 Lymph % (Auto) 20.5 [place] % (Auto) 7.1 Eos % (Auto) 2.5 Baso % (Auto) 0.1 Neut # (Auto) 11.11 H Lymph # (Auto) 3.27 [place] # (Auto) 1.13 H Eos # (Auto) 0.40 Baso # (Auto) 0.02 Immature Gran # (Auto) 0.04 H ESR 26 H PT INR APTT PTT Ratio Sodium 140 Potassium 2.9 L Chloride 105 Carbon Dioxide 28 Anion Gap 7.0 BUN 13 Creatinine 1.43 H Est Cr Clr Drug Dosing 101.8 Est GFR ( Amer) 73.0 Est GFR (Non-Af Amer) 63.0 BUN/Creatinine Ratio 9.0 L Glucose 192 H Osmolality Calcium 8.9 Magnesium 2.3 Total Bilirubin 0.6 AST 72 H ALT 67 Alkaline Phosphatase 104 Troponin I 13.300 H* C-Reactive Protein 2.87 H NT-Pro-B Natriuret Pep 5580 H Total Protein 8.0 Albumin 4.2 Globulin 3.8 Albumin/Globulin Ratio 1.1 Triglycerides Cholesterol LDL Cholesterol, Calc VLDL Cholesterol, Calc HDL Cholesterol Cholesterol/HDL Ratio TSH 6.080 H Free T4 1.08 Urine Osmolality Anaplasma Smear See Comment Lyme Disease IgG Ab Lyme Disease IgM Ab COVID-19 Eval Order SARS-CoV-2 (PCR) Monoscreen 02/21/21 02/21/21 02/21/21 23:04 23:04 23:52 WBC RBC Hgb Hct MCV MCH MCHC RDW Std Deviation RDW Coeff of Kalina Plt Count MPV Immature Gran % (Auto) Neut % (Auto) Lymph % (Auto) [place] % (Auto) Eos % (Auto) Baso % (Auto) Neut # (Auto) Lymph # (Auto) [place] # (Auto) Eos # (Auto) Baso # (Auto) Immature Gran # (Auto) ESR PT Cancelled 10.1 INR Cancelled 1.0 APTT PTT Ratio Sodium Potassium Chloride Carbon Dioxide Anion Gap BUN Creatinine Est Cr Clr Drug Dosing Est GFR ( Amer) Est GFR (Non-Af Amer) BUN/Creatinine Ratio Glucose Osmolality Calcium Magnesium Total Bilirubin AST ALT Alkaline Phosphatase Troponin I C-Reactive Protein NT-Pro-B Natriuret Pep Total Protein Albumin Globulin Albumin/Globulin Ratio Triglycerides Cholesterol LDL Cholesterol, Calc VLDL Cholesterol, Calc HDL Cholesterol Cholesterol/HDL Ratio TSH Free T4 Urine Osmolality Anaplasma Smear Lyme Disease IgG Ab Cancelled Lyme Disease IgM Ab Cancelled COVID-19 Eval Order SARS-CoV-2 (PCR) Monoscreen 02/21/21 02/21/21 02/21/21 23:52 23:52 23:52 WBC RBC Hgb Hct MCV MCH MCHC RDW Std Deviation RDW Coeff of Kalina Plt Count MPV Immature Gran % (Auto) Neut % (Auto) Lymph % (Auto) [place] % (Auto) Eos % (Auto) Baso % (Auto) Neut # (Auto) Lymph # (Auto) [place] # (Auto) Eos # (Auto) Baso # (Auto) Immature Gran # (Auto) ESR PT INR APTT PTT Ratio Sodium Potassium Chloride Carbon Dioxide Anion Gap BUN Creatinine Est Cr Clr Drug Dosing Est GFR ( Amer) Est GFR (Non-Af Amer) BUN/Creatinine Ratio Glucose Osmolality 290 Calcium Magnesium Total Bilirubin AST ALT Alkaline Phosphatase Troponin I C-Reactive Protein NT-Pro-B Natriuret Pep Total Protein Albumin Globulin Albumin/Globulin Ratio Triglycerides Cholesterol LDL Cholesterol, Calc VLDL Cholesterol, Calc HDL Cholesterol Cholesterol/HDL Ratio TSH Free T4 Urine Osmolality Anaplasma Smear Lyme Disease IgG Ab Negative Lyme Disease IgM Ab Equivocal A COVID-19 Eval Order SARS-CoV-2 (PCR) Monoscreen Negative 02/22/21 02/22/21 02/22/21 01:05 01:05 04:13 WBC 17.96 H RBC 5.39 Hgb 16.9 Hct 47.0 MCV 87.2 MCH 31.4 MCHC 36.0 RDW Std Deviation 41.2 RDW Coeff of Kalina 12.9 Plt Count 372 MPV 11.3 H Immature Gran % (Auto) 0.2 Neut % (Auto) 83.2 Lymph % (Auto) 12.4 [place] % (Auto) 4.0 Eos % (Auto) 0.1 Baso % (Auto) 0.1 Neut # (Auto) 14.94 H Lymph # (Auto) 2.23 [place] # (Auto) 0.71 H Eos # (Auto) 0.02 Baso # (Auto) 0.02 Immature Gran # (Auto) 0.04 H ESR PT INR APTT PTT Ratio Sodium Potassium Chloride Carbon Dioxide Anion Gap BUN Creatinine Est Cr Clr Drug Dosing Est GFR ( Amer) Est GFR (Non-Af Amer) BUN/Creatinine Ratio Glucose Osmolality Calcium Magnesium Total Bilirubin AST ALT Alkaline Phosphatase Troponin I C-Reactive Protein NT-Pro-B Natriuret Pep Total Protein Albumin Globulin Albumin/Globulin Ratio Triglycerides Cholesterol LDL Cholesterol, Calc VLDL Cholesterol, Calc HDL Cholesterol Cholesterol/HDL Ratio TSH Free T4 Urine Osmolality Anaplasma Smear Lyme Disease IgG Ab Lyme Disease IgM Ab COVID-19 Eval Order Covid19 at [facility] SARS-CoV-2 (PCR) NEGATIVE Monoscreen 02/22/21 02/22/21 02/22/21 04:13 05:39 08:06 WBC RBC Hgb Hct MCV MCH MCHC RDW Std Deviation RDW Coeff of Kalina Plt Count MPV Immature Gran % (Auto) Neut % (Auto) Lymph % (Auto) [place] % (Auto) Eos % (Auto) Baso % (Auto) Neut # (Auto) Lymph # (Auto) [place] # (Auto) Eos # (Auto) Baso # (Auto) Immature Gran # (Auto) ESR PT INR APTT 27.6 PTT Ratio 1.0 Sodium 140 Potassium 3.4 L D Chloride 107 Carbon Dioxide 25 Anion Gap 8.0 BUN 12 Creatinine 1.17 Est Cr Clr Drug Dosing 123.7 Est GFR ( Amer) 93.1 Est GFR (Non-Af Amer) 80.3 BUN/Creatinine Ratio 10.4 Glucose 166 H Osmolality Calcium 9.0 Magnesium 2.4 Total Bilirubin 0.8 AST 75 H ALT 68 Alkaline Phosphatase 97 Troponin I 8.200 H* C-Reactive Protein NT-Pro-B Natriuret Pep Total Protein 8.3 H Albumin 4.2 Globulin 4.1 H Albumin/Globulin Ratio 1.0 Triglycerides 80 Cholesterol 185 LDL Cholesterol, Calc 121 VLDL Cholesterol, Calc 16 HDL Cholesterol 48 Cholesterol/HDL Ratio 4 TSH Free T4 Urine Osmolality 465 L Anaplasma Smear Lyme Disease IgG Ab Lyme Disease IgM Ab COVID-19 Eval Order SARS-CoV-2 (PCR) Monoscreen Diagnostic Findings CT scan of the chest did not reveal any evidence of pulmonary embolus. No lung findings. Small pericardial effusion. Echocardiogram performed today revealed moderately reduced LV systolic function with regional wall motion abnormalities. No significant valvular heart disease. Trace pericardial effusion PG Care Time/CCT Total # of Minutes Spent Total Time Spent with Patient: Total time spent is greater than 50% in coordination of care (as documented) at patient's floor/unit and/or counseling patient: Coding Level of Care Code 39464 Inpt Consult Level 4 Diagnoses Elevated troponin R77.8 Tachycardia R00.0
[2021-02-22] MEDS ORDERED: POTASSIUM CHLORIDE CRTAB 20 MEQ TABCR PO ONE (13:00)
[2021-02-22] MEDS ORDERED: FUROSEMIDE 20 MG in SYRINGE 0 ML IV ONE (13:00)
[2021-02-22] MEDS: METOPROLOL TARTRATE 25 MG TAB PO SCH ×2 (13:03→17:22)
[2021-02-22 14:39] LABS: BUN Creatinine Ratio 7.8 (10-20); Calcium 8.8 mg/dl (8.5-10.1); Creatinine Clr Calc Pharmacy 117.3 ml/min; Est GFR (African American) 91.2 ml/min; Est GFR (Non-African American) 78.7 ml/min; Potassium 3.1 mmol/L (3.5-5.1)
[2021-02-22 17:35] LABS: Partial Thromboplastin Ratio 1.1; Partial Thromboplastin Time 28.4 Seconds (21.0-31.0)
--- NOTE | 2021-02-22 17:40 | Billing Data ---
Date of Service February 22, 2021 Coding Level of Care Code 07239 Subseq Hosp Care Lvl 3
[2021-02-22] MEDS ORDERED: HEPARIN SOD (PORCINE) 1000 UNIT/ML IV ONE (18:00)
[2021-02-22] MEDS ORDERED: POTASSIUM CHLORIDE PWD 20 MEQ PACK PO ONE (19:15)
--- NOTE | 2021-02-22 21:14 | Billing Data ---
Date of Service February 22, 2021 Coding Level of Care Code 76563 Initial Inpt Care Lvl 3
[2021-02-23] MEDS: METOPROLOL TARTRATE 25 MG TAB PO SCH ×6 (00:10→23:13)
[2021-02-23] MEDS: HEPARIN SODIUM/DEXTROSE 25,000 UNITS/500 ML BAG IV SCH (00:11)
[2021-02-23 00:27] LABS: Partial Thromboplastin Ratio 1.2; Partial Thromboplastin Time 31.9 Seconds (21.0-31.0)
[2021-02-23] MEDS ORDERED: HEPARIN SOD (PORCINE) 1000 UNIT/ML IV ONE ×2 (01:15→08:50)
[2021-02-23] MEDS: DOXYCYCLINE HYCLATE 100 MG in DEXTROSE 5% 100 ML IV SCH ×2 (05:14→17:26)
[2021-02-23 07:22] LABS: Estimated Average Glucose 105 mg/dl; Hemoglobin A1C 5.3 % (4.5-5.6)
[2021-02-23 07:28] LABS: Basophils # (auto) 0.02 K/uL (0-0.2); Basophils % (auto) 0.2 %; Eosinophils # (auto) 0.53 K/uL (0-0.5); Hematocrit (blood only) 47.2 % (42-52); Hemoglobin 16.8 g/dL (14.0-18.0); Immature Granulocytes # (auto) 0.04 K/uL (0.00-0.02); Immature Granulocytes % (auto) 0.3 %; Lymphocytes # (auto) 3.31 K/uL (1.2-3.4); Lymphocytes % (auto) 25.1 %; Mean Corpuscular Hemoglobin 31.2 pg (25-34); Mean Corpuscular Hgb Conc 35.6 g/dL (32-36); Mean Corpuscular Volume 87.6 fL (80-100); Mean Platelet Volume 11.2 fL (7.4-10.4); Monocytes # (auto) 0.74 K/uL (0.11-0.59); Monocytes % (auto) 5.6 %; Neutrophils # (auto) 8.55 K/uL (1.4-6.5); Neutrophils % (auto) 64.8 %; Platelet Count 299 K/uL (130-400); RDW Coefficient of Variation 13.4 % (11.5-14.5); RDW Standard Deviation 42.7 fL (36.4-46.3); Red Blood Count 5.39 M/uL (4.7-6.1); White Blood Count 13.19 K/uL (4.8-10.8)
[2021-02-23 07:39] LABS: Partial Thromboplastin Ratio 1.4; Partial Thromboplastin Time 35.9 Seconds (21.0-31.0)
[2021-02-23 08:12] LABS: BUN Creatinine Ratio 10.6 (10-20); Est GFR (African American) 85.1 ml/min; Est GFR (Non-African American) 73.4 ml/min; Potassium 3.7 mmol/L (3.5-5.1)
[2021-02-23] MEDS ORDERED: Nursing to Pharmacy Communication SCH (08:30)
[2021-02-23] MEDS: FAMOTIDINE 20 MG in SYRINGE 3 ML IV SCH ×2 (08:40→19:45)
[2021-02-23] MEDS: cefTRIAXone SODIUM 2,000 MG in DEXTROSE 5% 50 ML IV SCH (08:40)
--- NOTE | 2021-02-23 10:38 | Hospitalist Progress Note ---
Date of Service February 23, 2021 Assessment & Plan (1) Tachycardia: 35 yo M with TANYA on CPAP who presents w/ new dyspnea on exertion and persistent tachycardia, found to have elevated troponin to 13 w/ concern for myocarditis. Possible Myocarditis -- work-up pending - clinically reported new BANEGAS and feelings of palpitations; no major constitutional symptoms / illness over preceding weeks - work-up as follows: - Initial leukocytosis (max = 18) alongside elevated ESR, CRP - Elevated troponin with peak of 13, now downtrending - Echocardiogram demonstrating reduced LVEF (30-35%), RWMAs (inferior and basolateral macias) + significant MR and TR - Lyme IgM Equivocal, bands pending - Anaplasma smear negative - [place] negative - Other viral serologies pending - may represent viral etiology vs. Lyme - continue empiric doxycycline, CFTX for now Elevated troponin -- peak of 13, now downtrending - Patient presented with elevated troponins peaking at 13 in the setting of +BANEGAS, +chest discomfort (which he attributed to FANNY-like symptoms after coffee) - Mycoardial damage suspected - myocarditis > ACS - Cardiology consulted, appreciate insight and recommendations: - r/o early-onset ACS: catheterization without significant coronary disease (preliminary) - alternatively may represent myocarditis in setting of inflammatory markers - Beta blockade 25mg p.o. q6h - Add lisinopril - Discontinue heparin gtt given normal cath New-onset HFrEF -- LVEF 30-35% with inferior and basolateral RWMAs - No major findings of volume overload on exam - Echo findings as above - likely secondary to acute myocarditis, however given RWMAs must r/o ACS -- cath as above - CTA: neg for PE or focal consolidation. + interlobular pulmonary septal edema and +small pericardial effusion noted - Will consider diuresis if clinically indicated - Continue beta-blockade, ACEI Sinus Tachycardia -- persisting, NSR @ low 100s - per cardiology review, tachyarrhythmia has been more automobile rental representative of sinus tach rather than atrial flutter - in setting of acute, new-onset HFrEF and elevated troponins - metoprolol 25 mg PO q6h scheduled - consider Lopressor 5 IV p.r.n. (got 2x afternoon of 02/23) if rates persistently >110 - given hx mastectomy and acute onset of tachycardia + hypertension, AM cortisol and urine osm for evaluation of underlying adrenal pathology. AM cortisol pending Hypokalemia -- stable at present - Potassium supplementation - goal K >4, Mag >2 Elevated BSG - A1c and lipid panel ordered in AM for cardiac risk stratification. A1C pending. LDL 121. DVT ppx: SCDs FEN/Gi: heart healthy diet // cautious with IVF given low EF Code Status: Full Code Dispo: PCU (2) BANEGAS (dyspnea on exertion): (3) Hypokalemia: (4) Elevated troponin: (5) TANYA on CPAP: (6) CHF exacerbation: Admission and Anticipated Discharge Date Admission Date: February 22, 2021 Supervising Physician Co-Signing Physician Notes Patient seen and examined with PGY-1 Dr. Martinez. Agree with history, exam findings, assessment and plan of care as outlined. 35 yo M with TANYA on CPAP who presents w/ new dyspnea on exertion and persistent tachycardia, found to have elevated troponin to 13 w/ concern for myocarditis. Doing well. Has felt that his heart rate is elevated. Does feel a bit anxious, trying to be josephine about everything that is happening. Tachycardic on exam. 1. Myocarditis. Possible viral etiology vs Lyme vs J&J vaccine reaction. Lyme IgM equivocal Echo with EF 30-35%, moderate hypokinesis of inferior and basal- lateral macias, Significant MR and TR. Continue doxy and ceftriaxone. Start Lisinopril 5mg. Cath without coronary artery disease. 2. Sinus tachycardia. May be a bit dry. IVFs. Metoprolol 25mg q6h. 3. Elevated glucose levels. A1C < 6.5% 4. Elevated BPs. Started Lisinopril 5mg. Dispo: awaiting final Lyme IgM and clinical improvement (BPs and tachycardia). Subjective NAEO. Feeling well overall. Very mild chest discomfort, but not pain/pressure. No shortness of breath. No lightheadedness or dizziness - has been able to get up and go to the bathroom without difficulties. No chills or night sweats. Energy is good. 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 NAD. HEENT: NCAT. Eyes - Sclera are white, anicteric, and without injection. PERRL. EOMs display full ROM bilaterally. Neck - no JVD. Cardiac: Normal rate and regular rhythm; S1 and S2 present with S3 gallop best appreciated at the PMI. No murmurs or rubs. Pulmonary: Good respiratory effort with symmetric expansion of the chest. No use of accessory muscles. Lungs were clear to auscultation bilaterally with no crackles or wheezes. Abdominal: Normoactive bowel sounds. Abdomen was soft, nondistended, and non- tender to palpation. Extremities: Upper and lower extremities are warm and well perfused. Radial pulses 2+. No peripheral edema. Psych: Well-developed, well-nourished, appropriately dressed for occasion. Behavior is cooperative and appropriate. Affect is WNL. Insight is appropriate. Results & Data Results & Data ([facility]) Vital Signs (Past 12 Hours) Vital Signs Temp Pulse Pulse Resp BP Pulse Ox 02/23/21 08:00 55 L 02/23/21 07:38 36.5 C 113 H 22 159/123 H 97 02/23/21 02:59 36.0 C L 97 H 19 141/98 H 95 02/22/21 23:26 36.9 C 108 H 20 133/89 95 Resident Activity Tracking Resident Involvement: Resident Care Provided Care Provided: Adult Hospital Medicine
[2021-02-23] MEDS ORDERED: fentaNYL citrate 100 MCG/2 ML VIAL ONE (12:01)
[2021-02-23] MEDS ORDERED: MIDAZOLAM HCL 1 MG/ML 2ML VIAL ONE (12:01)
[2021-02-23] MEDS ORDERED: HEPARIN (PORCINE) 1000 UNIT/ML 10 ML (CATH LAB USE ONLY) ONE (12:01)
[2021-02-23] MEDS ORDERED: niCARdipine HCL INJ 2.5 MG/ML 10 ML AMP ONE (12:01)
[2021-02-23] MEDS ORDERED: NITROGLYCERIN/D5W 100MCG/ML 20ML SYR ONE (12:02)
--- NOTE | 2021-02-23 12:05 | Pre Anesthesia Assessment ---
Date of Service February 23, 2021 Pre Sedation Assessment Vital Signs Temp Pulse Pulse Resp BP Pulse Ox 02/23/21 11:28 140 H 17 197/138 H 100 02/23/21 08:00 55 L 02/23/21 07:38 36.5 C 113 H 22 159/123 H 97 02/23/21 02:59 36.0 C L 97 H 19 141/98 H 95 02/22/21 23:26 36.9 C 108 H 20 133/89 95 02/22/21 19:03 37.1 C 113 H 18 152/100 H 96 02/22/21 15:47 36.7 C 111 H 20 144/90 H 95 02/22/21 12:07 36.9 C 125 H 20 150/103 H 96 Cardiovascular + tachycardic Respiratory + respiratory effort normal Pre-Sedation Airway Assessment Smoking Status: Never smoker Hx Sleep Apnea: Yes Hx Difficult Intubation: No Short, Thick Neck: No Thyromental Distance: > or= 3.5 Finger Breadths Oral Cavity: + WNL Mallampati Class: III ASA: ASA3 NPO Status Date of Last Intake of Fluids: 02/22/21 Date of Last Intake of Solid Food: 02/22/21 Procedure Planning Contraindications for Sedation: none Current Medications Reviewed: Yes Notes The planned sedation has been discussed with the patient. Informed Consent was obtained. I have identified the patient, determined the appropriateness of sedation and have assessed the patient immediately prior to the procedure. All medicine(s) and interventions are by my order.
--- NOTE | 2021-02-23 13:03 | Cardiac Catheterization ---
[facility] Data: Ripper Operator Cardiac Status Clinical evaluation leading to the procedure CAD Presenation: Non STEMI Diagnostic Physicians Name: Ollie Lr MD Closure Device Recommendations: Medical Therapy and/or Counseling Cardiac Cath Procedure Full Procedure Date February 23, 2021 Pre-Procedure Diagnosis Pre-Procedure Diagnosis: Non STEMI AUC Score AUC Score: 8 Post-Procedure Diagnosis Post-Procedure Diagnosis: Normal Coronary Arteries Procedure(s) Performed Procedure(s) Performed: Coronary Angiography and Left Heart Cath Stoker Erector Ollie Lr MD Deckhand Engineer(s) none Estimated Blood Loss Estimated Blood Loss: 10cc Medication(s) Medication(s): Fentanyl, Heparin, Lidocaine 1%, Nicardipine, Nitroglycerin and Versed Summary of Findings Procedure performed: Left heart catheterization, selective coronary angiography Staff hat former: Ollie Lr MD Indication: The patient is a 35-year-old gentleman presented to the hospital with symptoms of progressive dyspnea. He was noted to have elevated cardiac biomarkers and mildly reduced LV systolic function. He was advised to undergo coronary angiography. Procedure detail: The patient was informed the risks benefits and alternatives to the intended procedure. He understood which proceed. He was taken to the cardiac catheterization suite in a fasting state. Conscious sedation was administered per protocol the patient was monitored electrocardiographically throughout today's procedure. The right radial area was prepped and draped in usual sterile fashion. The right radial artery was subsequently accessed using Seldinger technique and sheath was placed over guidewire at this site. The sheath was used facilitate passage of the cardiac catheters for selective coronary angiography and left heart catheterization. Images were obtained in multiple orthogonal views prior to removal of the catheters and sheath. Hemostasis was achieved at the access site using manual pressure. The patient tolerated procedure well. There were no immediate complications Equipment used: Five Erit[place]an tiger 4 Five [place] Cornell Findings: Coronary angiography Left main: Left main coronary was very short and there was selective engagement of the left circumflex and LAD depending on catheter orientation. No evidence of stenosis in the left main. Left anterior descending: Left anterior descending was a large transapical vessel. It produced 3 medium-sized diagonals and a 4th smaller diagonal close to the apex. No disease in this distribution Left circumflex: Left circumflex was a dominant vessel producing a large posterior descending artery. There were 4 additional OM branches. No disease in this distribution. Right coronary artery: The right coronary was a non dominant vessel. It was small but no evidence of stenosis. Impression: Left dominant coronary system No evidence of aortic stenosis No obstructive coronary disease Low left ventricular filling pressures Hemodynamics Rest Ao:: 149/113 mm of mercury Final Ao: n/a LV: 150/2 mm of mercury Left ventricular end-diastolic pressure 3 mm of mercury Recommendations Recommendations: Medical Therapy and/or Counseling Specimens Specimens: None Radiation Exposure (mGy) Two thousand eighty-two Contrast (mls) Eighty-five Procedural Complication(s) None Disposition PCU I attest to the content of the Intraoperative Record and any orders documented therein. Any exceptions are noted below. [facility] Card Cath Procedure Codes Cardiac Catheterization Procedure 1: Cardiovascular Cath Procedures: 25578 Coronaries and LHC (+/-LV) Moderate Sedation Procedure 1: Sedation/Anesthesia: 44416 Mod Sedation by the same physician;Init15 Min Child Age 5 & Up Procedure 2: Sedation/Anesthesia: 33841 Mod Sedation by the same physician; Ea [id number] Minutes PG Care Time/CCT Total # of Minutes Spent Total Time Spent with Patient: Total time spent is greater than 50% in coordination of care (as documented) at patient's floor/unit and/or counseling patient:
[2021-02-23 14:40] LABS: Partial Thromboplastin Time 25.8 Seconds (21.0-31.0)
[2021-02-23] MEDS: METOPROLOL TARTRATE 1 MG/ML VIAL IV PRN ×2 (15:45→15:53)
[2021-02-23] MEDS: lisinopril 5 MG TAB PO SCH (16:52)
--- NOTE | 2021-02-23 17:52 | Electrocardiogram Report ---
Test Reason : Blood Pressure : / mmHG Vent. Rate : 149 BPM Atrial Rate : 149 BPM P-R Int : 136 ms QRS Dur : 086 ms QT Int : 262 ms P-R-T Axes : 014 004 -87 degrees QTc Int : 412 ms Sinus tachycardia Possible Left atrial enlargement T wave abnormality, consider inferolateral ischemia Abnormal ECG No previous ECGs available Confirmed by Ollie Lr ([id number]) on 02/23/2021 5:52:26 PM Referred By: REFERRED SELF Confirmed By:Juan Carlos Lr
--- NOTE | 2021-02-23 18:23 | Post Operative Brief Note ---
Cardiology Brief Post Op Date of Surgery February 23, 2021 Pre & Post Diagnosis Operation Date: 02/23/21 11:00 <No data on this case meets the specified criteria> Procedure Left heart catheterization, selective coronary angiography Therapy Director Ollie Lr MD Scientific Software Developer none Estimated Blood Loss 10 Findings See Below The procedures performed through the right radial artery. The patient has a short left main and initial engagement was selected to the left circumflex. He has a large dominant left circumflex system. He has a large left anterior descending system. He has a small non dominant right coronary. There was no evidence of obstructive disease in any distribution. Left ventricular end-diastolic pressure was 3 Complications none Disposition Accompanied Patient To Recovery: No Overlapping Procedure I was immediately available: during the entire case.
--- NOTE | 2021-02-23 18:29 | Cardiology Progress Note ---
Date of Service February 23, 2021 Assessment & Plan (1) Elevated troponin: He appears have a myocarditis of some variety. Coronary were normal today. No evidence of an acute coronary syndrome. (2) Tachycardia: He continues to have an element of sinus tachycardia. However, his left ventricular filling pressures were quite low at the time of his catheterization. He seems to have responded to some volume infusion and continued use of metoprolol. She I think we will monitor him overnight and consider additional volume in the morning if he still maintains a tachycardia. No additional diuresis. (3) Cardiomyopathy: He appears to have a nonischemic cardiomyopathy. He is on beta-blockade which can be transition to metoprolol succinate at the time of discharge. He was started on Rishi inhibition this evening. Overall volume status is good, slightly dry even. The etiology may be viral or unknown. Possibly this is related to tick-borne illness. In any event, he does not require any coronary intervention. Will continue medical therapy and re-evaluate his LV function in several weeks. Admission and Anticipated Discharge Date Admission Date: February 22, 2021 Subjective This afternoon the patient claims to be feeling much better. Did not reporting symptoms of chest discomfort. His breathing has been good. He did not report dyspnea at all. No symptoms involving the right wrist or right hand. No dizziness or lightheadedness. Review of Systems Review of Systems: Per HPI Physical Exam Physical Exam: The patient is alert and oriented. Mood and affect appeared normal. He answered all questions appropriately. HEENT: Pupils are equal and reactive to light and accommodation. Extraocular movements are intact. The sclerae are anicteric. Neuro: Cranial nerves intact Lungs: Normal respiratory effort Pulses: The patient has palpable radial pulses bilaterally that are equal in intensity. Good perfusion of the right hand Extremities: There was no evidence of hypoperfusion. There is no cyanosis or clubbing. There is no edema. Skin: I did not appreciate any rashes on examination today. Results & Data ([facility]) Vital Signs (Past 12 Hours) Vital Signs Temp Pulse Pulse Resp BP BP Pulse Ox 02/23/21 17:59 108 H 20 153/119 H 96 02/23/21 16:33 109 H 157/103 H 02/23/21 15:58 104 H 18 152/122 H 96 02/23/21 15:53 108 H 152/120 H 02/23/21 15:45 137 H 161/128 H 02/23/21 15:17 137 H 19 161/128 H 96 02/23/21 14:16 135 H 20 163/133 H 95 02/23/21 13:47 136 H 19 183/119 H 95 02/23/21 13:17 37.2 C 134 H 20 176/111 H 97 02/23/21 13:11 133 H 17 181/129 H 95 02/23/21 12:57 134 H 17 181/127 H 96 02/23/21 11:28 140 H 17 197/138 H 100 02/23/21 08:00 55 L 02/23/21 07:38 36.5 C 113 H 22 159/123 H 97 Laboratory Results Abnormal Lab Results 02/22/21 02/22/21 02/23/21 04:13 08:17 00:04 WBC RBC Hgb Hct MCV MCH MCHC RDW Std Deviation RDW Coeff of Kalina Plt Count MPV Immature Gran % (Auto) Neut % (Auto) Lymph % (Auto) [place] % (Auto) Eos % (Auto) Baso % (Auto) Neut # (Auto) Lymph # (Auto) [place] # (Auto) Eos # (Auto) Baso # (Auto) Immature Gran # (Auto) APTT 31.9 H PTT Ratio 1.2 Sodium Potassium Chloride Carbon Dioxide Anion Gap BUN Creatinine Est Cr Clr Drug Dosing Est GFR ( Amer) Est GFR (Non-Af Amer) BUN/Creatinine Ratio Glucose Estimat Average Glucose 105 Hemoglobin A1c 5.3 Calcium Troponin I Cortisol AM Sample 24.71 H 02/23/21 02/23/21 02/23/21 00:04 07:06 07:06 WBC 13.19 H RBC 5.39 Hgb 16.8 Hct 47.2 MCV 87.6 MCH 31.2 MCHC 35.6 RDW Std Deviation 42.7 RDW Coeff of Kalina 13.4 Plt Count 299 MPV 11.2 H Immature Gran % (Auto) 0.3 Neut % (Auto) 64.8 Lymph % (Auto) 25.1 [place] % (Auto) 5.6 Eos % (Auto) 4.0 Baso % (Auto) 0.2 Neut # (Auto) 8.55 H Lymph # (Auto) 3.31 [place] # (Auto) 0.74 H Eos # (Auto) 0.53 H Baso # (Auto) 0.02 Immature Gran # (Auto) 0.04 H APTT PTT Ratio Sodium 140 Potassium 3.7 D Chloride 106 Carbon Dioxide 26 Anion Gap 7.0 BUN 13 Creatinine 1.26 Est Cr Clr Drug Dosing 110.0 Est GFR ( Amer) 85.1 Est GFR (Non-Af Amer) 73.4 BUN/Creatinine Ratio 10.6 Glucose 115 H Estimat Average Glucose Hemoglobin A1c Calcium 10.0 Troponin I 5.620 H* Cortisol AM Sample 02/23/21 02/23/21 07:06 14:13 WBC RBC Hgb Hct MCV MCH MCHC RDW Std Deviation RDW Coeff of Kalina Plt Count MPV Immature Gran % (Auto) Neut % (Auto) Lymph % (Auto) [place] % (Auto) Eos % (Auto) Baso % (Auto) Neut # (Auto) Lymph # (Auto) [place] # (Auto) Eos # (Auto) Baso # (Auto) Immature Gran # (Auto) APTT 35.9 H 25.8 PTT Ratio 1.4 1.0 Sodium Potassium Chloride Carbon Dioxide Anion Gap BUN Creatinine Est Cr Clr Drug Dosing Est GFR ( Amer) Est GFR (Non-Af Amer) BUN/Creatinine Ratio Glucose Estimat Average Glucose Hemoglobin A1c Calcium Troponin I Cortisol AM Sample PG Care Time/CCT Total # of Minutes Spent Total Time Spent with Patient: Total time spent is greater than 50% in coordination of care (as documented) at patient's floor/unit and/or counseling patient: Coding Level of Care Code 80982 Subseq Hosp Care Lvl 2 Diagnoses Elevated troponin R77.8 Tachycardia R00.0 Cardiomyopathy I42.9
[2021-02-24 05:08] LABS: Basophils # (auto) 0.02 K/uL (0-0.2); Basophils % (auto) 0.2 %; Eosinophils # (auto) 0.32 K/uL (0-0.5); Hematocrit (blood only) 45.8 % (42-52); Immature Granulocytes # (auto) 0.03 K/uL (0.00-0.02); Immature Granulocytes % (auto) 0.3 %; Lymphocytes # (auto) 2.39 K/uL (1.2-3.4); Lymphocytes % (auto) 22.4 %; Mean Corpuscular Hemoglobin 31.1 pg (25-34); Mean Corpuscular Hgb Conc 34.9 g/dL (32-36); Mean Corpuscular Volume 89.1 fL (80-100); Mean Platelet Volume 10.8 fL (7.4-10.4); Monocytes % (auto) 7.5 %; Neutrophils % (auto) 66.6 %; Platelet Count 287 K/uL (130-400); RDW Coefficient of Variation 13.1 % (11.5-14.5); RDW Standard Deviation 42.7 fL (36.4-46.3); Red Blood Count 5.14 M/uL (4.7-6.1); White Blood Count 10.66 K/uL (4.8-10.8)
[2021-02-24 05:16] LABS: Partial Thromboplastin Time 25.8 Seconds (21.0-31.0)
[2021-02-24 05:24] LABS: C Reactive Protein 2.34 mg/dl (0-0.29); Creatinine Clr Calc Pharmacy 112.7 ml/min; Est GFR (African American) 87.6 ml/min; Est GFR (Non-African American) 75.6 ml/min
[2021-02-24] MEDS: DOXYCYCLINE HYCLATE 100 MG in DEXTROSE 5% 100 ML IV SCH (05:24)
[2021-02-24] MEDS: METOPROLOL TARTRATE 25 MG TAB PO SCH ×2 (05:24→12:34)
[2021-02-24] MEDS: HEPARIN SODIUM/DEXTROSE 25,000 UNITS/500 ML BAG IV SCH ×2 (07:08→07:09)
[2021-02-24] MEDS: cefTRIAXone SODIUM 2,000 MG in DEXTROSE 5% 50 ML IV SCH (07:39)
[2021-02-24] MEDS: lisinopril 5 MG TAB PO SCH (07:39)
[2021-02-24] MEDS: FAMOTIDINE 20 MG in SYRINGE 3 ML IV SCH (07:41)
[2021-02-24 10:31] LABS: EBV Nuclear Ag Antibody >600.00 U/mL; EBV Virus Capsid Ag IgG Ab >750.00 U/mL; Epstein Barr Virus Early Ag Ab <9.00 U/mL
--- NOTE | 2021-02-24 11:38 | Cardiology Progress Note ---
Date of Service February 24, 2021 Assessment & Plan (1) Elevated troponin: He appears have a myocarditis of some variety. Coronary were normal yesterday. No evidence of an acute coronary syndrome. (2) Tachycardia: Much improved. Heart rates were in the normal range this morning. Possibly related to better hydration. Possibly related to treatment of underlying myocarditis, possibly related to metoprolol. (3) Cardiomyopathy: He appears to have a nonischemic cardiomyopathy. No current symptoms. He appears well compensated. In fact, his LV filling pressures were somewhat low yesterday. I think he could be safely discharged on metoprolol succinate 100 mg daily. Lisinopril 5 mg daily. He should refrain from strenuous physical activity at this point. He should follow-up in my clinic in the next 1-2 weeks. Admission and Anticipated Discharge Date Admission Date: February 22, 2021 Subjective This morning patient claims to be feeling well. He states that his breathing is good. He has no symptoms of chest heaviness or chest pain which is an improvement from the past few days when he felt a sense of injury. He has been ambulatory without dizziness. No pain at the right radial access site. Review of Systems Review of Systems: Per HPI Physical Exam Physical Exam: The patient is alert and oriented. Mood and affect appeared normal. He answered all questions appropriately. HEENT: Pupils are equal and reactive to light and accommodation. Extraocular movements are intact. The sclerae are anicteric. Neuro: Cranial nerves intact Lungs: Normal respiratory effort Cardiac: Regular rate and rhythm. No murmurs. Pulses: The patient has palpable radial pulses bilaterally that are equal in intensity. Good perfusion of the right hand Extremities: There was no evidence of hypoperfusion. There is no cyanosis or clubbing. There is no edema. Skin: I did not appreciate any rashes on examination today. Results & Data ([facility]) Vital Signs (Past 12 Hours) Vital Signs Temp Pulse Pulse Resp BP Pulse Ox 02/24/21 08:00 65 02/24/21 07:35 36.4 C L 87 20 136/89 97 02/24/21 05:24 88 111/78 02/24/21 04:01 36.6 C 86 18 120/86 96 Laboratory Results Abnormal Lab Results 02/21/21 02/22/21 02/23/21 23:52 08:17 14:13 WBC RBC Hgb Hct MCV MCH MCHC RDW Std Deviation RDW Coeff of Kalina Plt Count MPV Immature Gran % (Auto) Neut % (Auto) Lymph % (Auto) [place] % (Auto) Eos % (Auto) Baso % (Auto) Neut # (Auto) Lymph # (Auto) [place] # (Auto) Eos # (Auto) Baso # (Auto) Immature Gran # (Auto) ESR APTT 25.8 PTT Ratio 1.0 Sodium Potassium Chloride Carbon Dioxide Anion Gap BUN Creatinine Est Cr Clr Drug Dosing Est GFR ( Amer) Est GFR (Non-Af Amer) BUN/Creatinine Ratio Glucose Calcium C-Reactive Protein Rheumatoid Factor <14 EBV Capsid Ag IgG Ab >750.00 H EBV Capsid Ag IgM Ab <36.00 EBV EA Restrict+Diffuse <9.00 EBV Nuclear Antigen Ab >600.00 H EBV Antibody Interp SEE NOTE 02/24/21 02/24/21 02/24/21 04:54 04:54 04:54 WBC 10.66 RBC 5.14 Hgb 16.0 Hct 45.8 MCV 89.1 MCH 31.1 MCHC 34.9 RDW Std Deviation 42.7 RDW Coeff of Kalina 13.1 Plt Count 287 MPV 10.8 H Immature Gran % (Auto) 0.3 Neut % (Auto) 66.6 Lymph % (Auto) 22.4 [place] % (Auto) 7.5 Eos % (Auto) 3.0 Baso % (Auto) 0.2 Neut # (Auto) 7.10 H Lymph # (Auto) 2.39 [place] # (Auto) 0.80 H Eos # (Auto) 0.32 Baso # (Auto) 0.02 Immature Gran # (Auto) 0.03 H ESR 23 H APTT PTT Ratio Sodium 139 Potassium 4.0 Chloride 109 H Carbon Dioxide 25 Anion Gap 5.0 BUN 18 Creatinine 1.23 Est Cr Clr Drug Dosing 112.7 Est GFR ( Amer) 87.6 Est GFR (Non-Af Amer) 75.6 BUN/Creatinine Ratio 15.0 Glucose 103 H Calcium 9.0 C-Reactive Protein 2.34 H Rheumatoid Factor EBV Capsid Ag IgG Ab EBV Capsid Ag IgM Ab EBV EA Restrict+Diffuse EBV Nuclear Antigen Ab EBV Antibody Interp 02/24/21 04:54 WBC RBC Hgb Hct MCV MCH MCHC RDW Std Deviation RDW Coeff of Kalina Plt Count MPV Immature Gran % (Auto) Neut % (Auto) Lymph % (Auto) [place] % (Auto) Eos % (Auto) Baso % (Auto) Neut # (Auto) Lymph # (Auto) [place] # (Auto) Eos # (Auto) Baso # (Auto) Immature Gran # (Auto) ESR APTT 25.8 PTT Ratio 1.0 Sodium Potassium Chloride Carbon Dioxide Anion Gap BUN Creatinine Est Cr Clr Drug Dosing Est GFR ( Amer) Est GFR (Non-Af Amer) BUN/Creatinine Ratio Glucose Calcium C-Reactive Protein Rheumatoid Factor EBV Capsid Ag IgG Ab EBV Capsid Ag IgM Ab EBV EA Restrict+Diffuse EBV Nuclear Antigen Ab EBV Antibody Interp Diagnostic Findings CT scan of the chest did not reveal any evidence of pulmonary embolus. No lung findings. Small pericardial effusion. Echocardiogram performed today revealed moderately reduced LV systolic function with regional wall motion abnormalities. No significant valvular heart disease. Trace pericardial effusion Cardiac catheterization performed yesterday revealed normal coronary arteries without evidence of stenosis or obstruction PG Care Time/CCT Total # of Minutes Spent Total Time Spent with Patient: Total time spent is greater than 50% in coordina tion of care (as documented) at patient's floor/unit and/or counseling patient: Coding Level of Care Code 82571 Subseq Hosp Care Lvl 2 Diagnoses Elevated troponin R77.8 Tachycardia R00.0 Cardiomyopathy I42.9
--- NOTE | 2021-02-24 11:58 | Discharge Summary ---
Date of Service February 24, 2021 Admission HPI Per Admitting Provider 35-year-old male with past medical history of TANYA on CPAP presenting to the emergency department for acute onset palpitations, chest tightness, dyspnea on exertion. He states that 2 days ago he was mowing his lawn and felt more tired than usual afterwards but otherwise felt well. He states that today he was walking up a hill in his backyard and could feel his heart racing faster and harder than it normally does. He also stated that he was more easily fatigued while going up this he will. His heart rate and symptoms subsided within a few minutes after stopping however later the same day he noticed his heart going f chepe and generally feeling unwell. He stated that he initially attributed this to his recent cessation of coffee and associated mild reflux symptoms. He eventually decided that he needed to be evaluated in the emergency department. Since being treated with Cardizem and having his heart rate lowered he says that the chest tightness that was there prior no longer is present. He continues to deny any chest tightness, pressure, pain, radiation. He does attest to feeling palpitations however much improved from before. He states that he has been told he had "borderline" high blood pressure before but was never prescribed medication for it. He states that he does not have a strong family history of heart attack, stroke, coronary artery disease. His parents both had hypertension but otherwise he is not aware of any cardiac disease or diabetes in his family. He takes Flonase as needed for nasal congestion and occasionally will take an aspirin if he has a headache. He does not otherwise take any medications or supplements. Primary Care Provider: NO PCP Admission Exam Per Admitting Provider Constitutional: obese, in no apparent distress, laying comfortably in bed. Eyes: EOMI, pupils equal and reactive bilaterally, no scleral icterus Neck: thick Cardiac: tachycardic at 130 on monitor, RR, no murmurs, gallops or rubs. Normal S1, S2 Pulm: CTA BL, no wheezes, rhonchi, crackles or rubs, moving air well throughout both lungs Abd: soft, nontender, nondistended, normal bowel sounds, no rebound or guarding, healed surgical scar across superior abdomen Extremities: 1+ peripheral pulses (difficult to palpate), no edema Neuro: no focal deficits, moving all 4 limbs, A&Ox3 Principal Diagnosis suspected myocarditis nonischemic cardiomyopathy Discharge Exam General: Well 35yo male lying back in his hospital bed watching TV upon my arrival. NAD. HEENT: NCAT. Eyes - Sclera are white, anicteric, and without injection. PERRL. EOMs display full ROM bilaterally. Neck - no JVD. Cardiac: Normal rate and regular rhythm; S1 and S2 present with S3 gallop best appreciated at the PMI. No murmurs or rubs. Pulmonary: Good respiratory effort with symmetric expansion of the chest. No use of accessory muscles. Lungs were clear to auscultation bilaterally with no crackles or wheezes. Abdominal: Normoactive bowel sounds. Abdomen was soft, nondistended, and non- tender to palpation. Extremities: Upper and lower extremities are warm and well perfused. Radial pulses 2+. No peripheral edema. Discharge Data Allergies Allergy/AdvReac Type Severity Reaction Status Date / Time No Known Allergies Allergy Unverified 02/21/21 23:46 Consultations 02/22/21 01:16 ED Decision to Admit Stat 02/22/21 03:46 Consult Cardiology Routine Procedures Performed Operation Date: 02/23/21 11:00 Actual Procedures p Cath, Left with Cors and Vent - León Lr MD s Cineradiography w/Routine Exam - León Lr MD Ordered Studies CT ANGIOGRAM OF THE CHEST CLINICAL HISTORY: Shortness of breath. Possible acute pulmonary embolism COMPARISON STUDY: 02/21/2021 TECHNIQUE: Following the IV administration of 106 mL of Optiray, CT angiogram of the thorax was performed from the thoracic inlet to the lung bases utilizing the pulmonary embolus protocol. Images are reviewed in the axial, sagittal, and coronal planes. IV contrast was administered without complication. MIP imaging was performed. A dose lowering technique was utilized adhering to the principles of ALARA. CT DOSE: 1001.13 mGy.cm FINDINGS: There is hepatic steatosis. There is a mildly enlarged right paratracheal lymph node. This however demonstrates a normal fatty hilum and is likely reactive. The ascending thoracic aorta measures 36 mm in diameter. There is a small pericardial effusion. There were no pulmonary artery filling defects to indicate acute pulmonary embolism. No pleural effusions are visualized. There is mild interlobular of the septal edema. There is no focal pulmonary consolidation to indicate a pneumonia IMPRESSION: 1. No evidence of acute pulmonary embolism. 2. No evidence of focal pulmonary consolidation 3. Interlobular pulmonary septal edema 4. Small pericardial effusion 5. Hepatic steatosis ACT 112: Negative or not required by law. Hospital Course (1) Tachycardia: 35 yo M with TANYA on CPAP who presents w/ new dyspnea on exertion and persistent tachycardia, found to have elevated troponin to 13 w/ concern for myocarditis. Possible Myocarditis -- work-up pending - clinically reported new BANEGAS and feelings of palpitations; no major constitutional symptoms / illness over preceding weeks - work-up as follows: - Initial leukocytosis (max = 18) alongside elevated ESR, CRP - Elevated troponin with peak of 13, now downtrending - Echocardiogram demonstrating reduced LVEF (30-35%), RWMAs (inferior and basolateral macias) + significant MR and TR - Lyme IgM Equivocal, IgG negative, bands pending - Anaplasma smear negative - [place] negative - Other viral serologies pending - suspect this most likely represents a viral etiology, however Lyme cannot be excluded as a possible cause - was on IV doxycycline, CFTX while here - will empirically continue doxycycline for 21 day course (end 03/15/21) - will require cardiology outpatient f/u within 2-4 weeks (Dr. Lr was attending retail cashier who followed patient) - will require repeat echocardiography in 1-3 months, per cardiology - activity restrictions: no strenuous, cardio-intensive activity until cleared by cardiology New-onset HFrEF (Nonischemic Cardiomyopathy) -- LVEF 30-35% with inferior and basolateral RWMAs - No major findings of volume overload on exam - Echo findings as above - secondary to presumed myocarditis, as above - CTA: neg for PE or focal consolidation. + interlobular pulmonary septal edema and +small pericardial effusion noted - Metoprolol succinate 100mg daily on discharge - Lisinopril 5mg daily on discharge - Recommend BMP check in 10-14 days (Cr, K) Elevated troponin -- peak of 13, now downtrending - Patient presented with elevated troponins peaking at 13 in the setting of +BANEGAS, +chest discomfort (which he attributed to FANNY-like symptoms after coffee) - Myocardial damage suspected - myocarditis > ACS - Cardiology consulted, appreciate insight and recommendations: - catheterization without evidence of early-onset coronary disease - alternatively may represent myocarditis in setting of inflammatory markers Sinus Tachycardia -- resolving on discharge - per cardiology review, tachyarrhythmia has been more dental sales representative of sinus tach rather than atrial flutter (initial concern in ED) - in setting of acute, new-onset HFrEF and elevated troponin - metoprolol, as above Elevated BSG - A1c and lipid panel ordered in AM for cardiac risk stratification: A1c 5.3%. LDL 121. (2) BANEGAS (dyspnea on exertion): (3) Hypokalemia: (4) Elevated troponin: (5) TANYA on CPAP: (6) CHF exacerbation: Total Time Total Time Spent Total Time Spent (In Minutes): 30 Discharge Plan Discharge Items Patient Disposition: Home - Self-Care Reason For Visit: TACHYCARDIA Discharge Diagnosis: suspected myocarditis nonischemic cardiomyopathy Activity: Per Instructions section Non-emergency contact: Primary Care Provider and Support Services Manager Call non-emergency contact if: you have any medication questions, your symptoms worsen, your pain is unusual for you and your temperature is above 101 Follow-up/Referrals: PCP,NO [Primary Care Provider] - Diet: Heart Healthy Addtl Attending Provider Instructions: You were seen in [facility] for evaluation of fatigue and shortness of breath. Upon your arrival here, you underwent several tests to de termine the cause of the symptoms. You were found to have elevated heart enzymes and imaging findings consistent with reduced heart function. In this context, you were also found to have elevated blood markers that signify inflammationwhich can sometimes be present with recent/ongoing infection. Cardiology aided in your care while here, and also performed cardiac catheterization to look at your heart's blood supplywhich was normal. Given your findings, we suspect that your reduced heart function is most likely secondary to myocarditis. This is a condition which the heart muscle itself b ecomes inflamed, which can sometimes occur in the setting of infection. While some of your labs are still pending, we suspect that this is most likely viral in naturehowever, Lyme can also not be ruled out as a possibility. Thankfully, you showed great improvement while here. Upon discharge, it will be important for you to continue some of the medications started while you were here in the hospital. This includes metoprolol succinate 100 mg daily, lisinopril 5 mg daily, and doxycycline 100 mg, twice daily, for an additional 17 days. The first 2 medications helps optimize your heart function, whereas the doxycycline serves as an antibiotic which we will be using to empirically and preventatively treat Lyme disease in case that may have been involved in the process. During your recovery, it is important to refrain from strenuous physical activity to ensure that an excess level of stress is not placed on the heart. You may continue to walk, go outside, and participate in your everyday activities, but we recommend against heavy lifting, strenuous hiking, and other cardio intensive aerobic exercises until cleared by your retail cashier. You are to follow-up with cardiology within the next several weeks; to arrange an appointment, please call [phone] were seen by the retail cashier Dr. Lr while here. They will arrange further echocardiograms for you at this appointment. Further, we recommend following up with your PCP within 1 week to review this visit and your medications. In the interim, if you experience any new or worsening shortness of breath, chest pain, palpitations, fevers, chills, nausea, vomiting, lightheadedness, or feelings like he may pass out, we do recommend arranging an appointment to receive medical attention; if your symptoms are severe, you should call 911 or report to the nearest ER for evaluation. It is been a pleasure caring for you here at [facility]. We wish you all the best in your recovery. ---- Otis Matrinez MD [facility] Pending Studies at Discharge: Yes Stand-Alone Forms: [facility], Smoking Cessation Medications and DC Order Prescriptions: New metoprolol succinate [Toprol XL] 100 mg tablet extended release 24 hr 100 mg PO DAILY Qty: 30 RF: 1 doxycycline hyclate 100 mg capsule 100 mg PO BID 19 Days Qty: 38 RF: 0 lisinopril 5 mg tablet 5 mg PO DAILY Qty: 30 RF: 1 Continued aspirin 81 mg Tablet,Delayed Release (Dr/Ec) 324 mg PO DAILY PRN (Reason: Headache) RF: 0 fluticasone propionate [Flonase Allergy Relief] 50 mcg/actuation [place],Suspension 1 spray INTRANASAL DAILY PRN (Reason: Congestion) RF: 0 Discharge Orders: Discharge Order (Routine); Ordered 02/24/21 Ordered By: Otis Martinez Admission Data Admit Date/Time: 02/22/21 01:34 Attending Provider: Sven Ames Admit Provider: Amanda Lopez Primary Care Provider: PCP,NO Other Providers: Wellington Kelly ; León Lr Other Interventions: Discharge Summary Assessment (RN) Last Done: 02/24/21 13:03 Supervising Physician Co-Signing Physician Notes Patient seen and independently of PGY-1 Dr. Martinez. Agree with history, exam findings, assessment and plan of care as outlined. 35 yo M with TANYA on CPAP who presents w/ new dyspnea on exertion and persistent tachycardia, found to have elevated troponin to 13 w/ concern for myocarditis. Doing well. No complaints. Does have plans with partner to change lifestyle--healthy diet, some regular exercise. Does not have a regular PCP. Would like to follow up with Dr. Martinez in the outpatient setting. Well appearing. In good spirits. 1. Myocarditis. Lyme IgM equivocal. Awaiting IgM bands from Western blot. Echo with EF 30-35%, moderate hypokinesis of inferior and basal-lateral macias, Significant MR and TR. Will discharge home on doxy until Lyme IgM results return. Stop ceftriaxone. Start Lisinopril 5mg. Cath without coronary artery disease. 2. Sinus tachycardia Improved. Metoprolol 25mg [id number] to metoprolol XL 100mg daily. 3. Elevated glucose levels. A1C < 6.5% 4. Elevated BPs. Started Lisinopril 5mg. Dispo: Discharge home today. I personally spent 25 minutes discharge planning for this patient. Resident Activity Tracking Resident Involvement: Resident Care Provided Care Provided: Adult Hospital Medicine
[2021-02-24] MEDS ORDERED: FAMOTIDINE 20 MG TAB PO SCH (21:00)
[2021-02-25 03:47] LABS: 18KDIGG Band NON-REACTIVE; 23KDIGG Band NON-REACTIVE; 23KDIGM Band REACTIVE; 28KDIGG Band NON-REACTIVE; 30KDIGG Band NON-REACTIVE; 39KDIGG Band NON-REACTIVE; 39KDIGM Band REACTIVE; 41KDIGG Band REACTIVE; 41KDIGM Band NON-REACTIVE; 45KDIGG Band NON-REACTIVE; 58KDIGG Band NON-REACTIVE; 66KDIGG Band NON-REACTIVE; 93KDIGG Band NON-REACTIVE; Lyme Antibodies, WB IgG NEGATIVE (NEGATIVE); Lyme Antibodies, WB IgM POSITIVE (NEGATIVE)
[2021-02-26 22:50] LABS: Ehrlichia chaff IgG Ab <1:64 (<1:64); Ehrlichia chaff IgM Ab <1:20 (<1:20)
== END 2021-02-24 14:00 | disposition home or self-care (01) ==
LOC: ED 22:29 → 2S 02-22 01:34 → SUATTDRO 02-22 01:34 → 2S 02-22 03:15